=== PATIENT | male | born 1940 | race Caucasian/White ===

== ENCOUNTER → 2017-01-03 | Outpatient (CLI) | payer MEDICARE, BC ==
[~2017-01-03] MED LIST: ASPI-799 PO; CLOP75TA27 PO; ESCI10TA PO; FINA5TAB PO; PIRO20CA2 PO; PYRI60TA PO; SIMV5TAB31 PO
--- NOTE | 2017-01-03 14:49 | RADRPT ---
PROCEDURE: XR pelvis/right hip. CLINICAL INDICATION: Hip pain TECHNIQUE: AP pelvis/lateral right hip view performed. COMPARISON: No prior studies are available for comparison. FINDINGS: There is a left total hip replacement. There is no evidence of loosening of the prosthesis. No hardw are failure identified. There is moderate to severe right hip osteoarthrosis. This is associated with joint space narrowing, subchondral sclerosis and osteophytosis. There is normal osseous mineralization. No fractures or osseous lesions are identified. The soft tissues are unremarkable. IMPRESSION: Left total hip replacement. Moderate to severe right hip osteoarthrosis. RPTAT: HGDB .Vincent Christianson MD, MD Date Time Electronically viewed and signed by .Vincent Christianson MD, on 01/03/2017 14:49 .B/
--- NOTE | 2017-01-04 06:19 | HKNOTE ---
DATE OF SERVICE: 01/03/2017 MAIN COMPLAINT: Pain in the right hip. HISTORY OF MAIN COMPLAINT: The patient is a 76-year-old male who has previously undergone a left hi p replacement which was performed by me 15 years ago. He has been totally delighted with the result s of the surgery. He has never had a moment's trouble with the hip. Three years ago he underwent a right knee replacement which was also performed by me. He has been very pleased with the results o f surgery. He now complains of pain in his right groin which has been present for approximately the past year but very much worse in the past 3 weeks. PRESENT COMPLAINTS: The pain in his right groin varies from moderate to severe. Pain is aggravated by walking, weightbearing, and stair climbing. He does not get any rest pain, occasionally gets ni ght pain. He takes Motrin for the pain which "helps a little." His main relief is just by sitting still. He does have a history of problems with the lower back. He has had surgery on the lumbar sp ine. He has no numbness or tingling in his legs. On a level surface, he can walk no more than 50 f eet at a time using a cane. He limps all the time. His leg lengths feel equal. He does not have a shoe lift. He cannot clip his toenails on his right side nor put on his shoes and socks. PAST ORTHOPEDIC HISTORY: Left hip replacement by Dr. Hyde 2000, right knee replacement by Dr. Hyde 2013. PRIOR CORTISONE INTAKE: He has had multiple cortisone injections into his knee. He is currently on prednisone 15 to 20 mg a day for myasthenia gravis. He has been on the prednisone since 2016. ALCOHOL INTAKE: None. OTHER JOINT PROBLEMS: None. BLOOD TESTS FOR ARTHRITIS: Yes (osteoarthritis.) PRIOR INJURIES TO HIPS OR KNEES: None. WORK STATUS: The patient is retired. He enjoys working on his [employer] cars. PAST MEDICAL HISTORY: 1. Heart attack with stent placement in 2008. 2. Myasthenia gravis. 3. The patient has sleep apnea. He uses a CPAP machine every night. The patient is being treated for the myasthenia with IVIG. This occurs approximately every 3 or 4 m ont; he is admitted to the hospital for 4 or 5 days and given the intravenous injections. The las t injection series was on 10/08/2016. PAST SURGICAL HISTORY: 1. Right knee replacement in 2015. 2. Left hip replacement in 2000. 3. Spine surgery with Dr. Abel in 2007. 4. Thymectomy at [facility] in 2010. ALLERGIES: NONE. MEDICATIONS: 1. ____ 50 mg 2 tablets twice a day for myasthenia gravis. 2. Folic acid 1 mg twice a day for myasthenia gravis. 3. Prednisone 50 mg once a day for myasthenia gravis. 4. Mestinon 60 mg 3 times a day for myasthenia gravis. 5. Plavix 75 mg once a day for his heart condition. 6. Proscar 5 mg daily. 7. Simvastatin 80 mg daily. 8. Singulair 10 mg once a day. 9. Lisinopril 20 mg once a day for his heart. 10. Lexapro 20 mg once a day by mouth for depression. 11. Piroxicam 20 mg daily for arthritis. 12. Aspirin 325 mg once a day for his heart. 13. Incruse 62.5 mcg 1 puff in the morning for breathing. 14. Breo 100 mcg 1 puff in the morning for breathing. FAMILY HISTORY: Noncontributory. SYSTEMS REVIEW: Heart attack in 2008, gait disturbance. Otherwise negative. HABITS: The patient does not smoke or drink alcoholic beverages. COOK SAUCE: Dr. Christian Patrick, [place], [place] (phone number [phone].) NEUROLOGIST/MYASTHENIA GRAVIS EXPERT: Dr. Perry (phone number [phone].) PHYSICAL EXAMINATION GENERAL: The patient comes in with his . He is quite severely overweight. VITAL SIGNS: Height 5 feet 7, weight 265 pounds. Blood pressure 135/60, temperature 98.7. The patient is quite deaf, and I had to scream in his ears or his would translate for him. GAIT: The patient has a marked antalgic gait. He has a cane which he uses in his left hand. RIGHT HIP: Flexion 45 degrees, external rotation contracture 20 degrees, internal rotation -20 degr ees, abduction 30, adduction 10 degrees, severe pain in the right groin at all limits of motion. LEFT HIP: A full range of motion without pain. RIGHT KNEE: Scar of previous knee replacement. Full range of motion without pain. IMAGING: Plain x-rays of his pelvis and hips obtained today show exceedingly severe degenerative os teoarthritis of the right hip with [id number] complete loss of joint space. Osteophytes, subchond ral sclerosis, and intraosseous cyst formation. His bone quality seemed to be quite good. Imaging of the left hip seen on today's x-rays show a perfect right hip replacement. Appears to be a gqgus-qt-qkszi Van type of hip implant. All components are well aligned and well attached to the bone. DIAGNOSES: 1. Exceedingly severe degenerative osteoarthritis of the right hip. 2. Status post right total knee replacement. 3. Status post left total hip replacement. 4. Myasthenia gravis. 5. Sleep apnea. 6. History of heart attack. 7. Breathing disorder (? COPD). MANAGEMENT: The patient is advised that he most certainly will need to have a right hip replacement . The procedure and some of the major possible complications were discussed with him in a fair amou nt of detail. Note that the newer technique of anterior hip replacement was discussed with him and his in a fair amount of detail. The patient was given my manual titled "Arthritis of the Hip J oint" which contains information concerning the various alternatives of treatment. It includes vario us forms of conservative treatment, including the use of nonsteroidal anti-inflammatory medications and their dangers. Various surgical alternatives are discussed. The technique of total hip replaceme nt is discussed in detail, including possible complications. Included also is a section on the possi ble complications of blood transfusion, a section on postoperative precautions, and an exercise prog uyen to follow at home after total hip replacement. The long-term care of a total hip replacement [facility] is also covered in detail. The patient was instructed to read this manual in its entirety since it is, in and of itself, a form of informed consent. After reading this manual, the patient will ma ke a list of further questions that may not have been covered adequately. The patient was further ad vised that this manual, although exhaustive in nature, is only intended to supplement and complement a one-on-one discussion with me. FINAL DIAGNOSES: 1. Exceedingly severe degenerative osteoarthritis of the right hip. 2. Status post right total knee replacement. 3. Status post left total hip replacement. 4. Myasthenia gravis. 5. Sleep apnea. 6. History of heart attack. 7. Breathing disorder (? COPD). I will need to contact Dr. Perry ([phone]) concerning the myasthenia gravis and any special c are we will need to take at the time of surgery. In particular, there is a question of whether or n ot he will need IVIG around the time of the surgery. The issue of his prednisone also needs to be d iscussed. The patient has other medications which may have an impact on his surgery including the P lavix and aspirin. FINAL DIAGNOSES: 1. Exceedingly severe degenerative osteoarthritis of the right hip. 2. Status post right total knee replacement. 3. Status post left total hip replacement. 4. Myasthenia gravis. 5. Sleep apnea. 6. History of heart attack. 7. Breathing disorder (? COPD). At the patient's request, he was given injection of 2 mL of Kenalog and 6 mL of 2% lidocaine into th e right hip joint. 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 Under sterile conditions, given injection of 2 mL of Kenalog and 6 mL of 2% lidocaine into the right hip joint. The patient will call when he is ready to proceed with surgery. At his request, he is given a presc ription for [place] [id number], one orally b.i.d. Dictated By: MEERA LARSON/LUISA Conf#: [id number] DID#: [id number]
== END | disposition home or self-care (01) ==
LOC: HKI 13:59
DX: M16.11 Unilateral primary osteoarthritis, right hip (principal); G70.00 Myasthenia gravis without (acute) exacerbation; Z96.651 Presence of right artificial knee joint; Z96.642 Presence of left artificial hip joint
CPT/HCPCS: 20610; 73502; G0463

== ENCOUNTER → 2017-03-26 | Outpatient (CLI) | payer MEDICARE, BC ==
[~2017-03-26] MED LIST changes: +AZAT50TA31 PO; +FLUT1AER INHALATION; +FOLI-49 PO; +LISI20TA11 PO; +MONT10TA21 PO; +UMEC62.5 IH
== END | disposition home or self-care (01) ==
LOC: HKI 13:45
DX: Z01.818 Encounter for other preprocedural examination (principal)
CPT/HCPCS: G0463

== ENCOUNTER 2017-03-27 06:07 | Inpatient (IN) | payer MEDICARE, BC ==
[2017-03-26 10:26] VITALS: BMI 42.3
[2017-03-27] VITALS (38 sets, daily range): BP systolic 83–138; BP diastolic 35–66; PULSE 61–98; RESP 17–26; Ht 170.2 cm; Wt 120.5 kg
[~2017-03-27] VITALS: Ht 170.2 cm; Wt 120.5 kg
[~2017-03-27 06:07] MED LIST changes: -AZAT50TA31 PO; -FLUT1AER INHALATION; -FOLI-49 PO; -LISI20TA11 PO; -MONT10TA21 PO; +TRANEXAMIC ACID 2,000 MG in SOD CHLORIDE 0.9% 100 ML IVPB ONE; -UMEC62.5 IH
[2017-03-27] MEDS ORDERED: LANSOPRAZOLE 30 MG CAP PO ONE (06:15)
[2017-03-27] MEDS ORDERED: oxyCODONE (CR) 10 MG TAB [oxyCONTIN] PO ONE (06:15)
[2017-03-27] MEDS ORDERED: VANCOMYCIN 1 GM (PMX) 250 ML IVPB ONE (06:15)
[2017-03-27] MEDS ORDERED: LACTATED RINGER'S 1,000 ML IV* SCH (06:15)
[2017-03-27] MEDS ORDERED: ACETAMINOPHEN 1000MG/100ML IV 100 ML IVPB ONE (06:15)
[2017-03-27] MEDS ORDERED: DEXAMETHASONE 4 MG/ML 1 ML INJ IV ONE (06:15)
[2017-03-27] MEDS ORDERED: CELECOXIB 200 MG CAP PO ONE (06:15)
[2017-03-27] MEDS ORDERED: ONDANSETRON 4 MG INJ IV ONE (06:15)
[2017-03-27] MEDS ORDERED: POLYMYXIN B 500000 UNIT INJ ONE (06:40)
[2017-03-27] MEDS ORDERED: VANCOMYCIN 1 GM INJ ONE (06:40)
[2017-03-27] MEDS ORDERED: GELATIN SIZE 100 SPONGE ONE (06:40)
[2017-03-27] MEDS ORDERED: HEPARIN 1000 UNITS/ML 10 ML INJ ONE (06:40)
[2017-03-27] MEDS ORDERED: BUPIVACAINE 0.5%/EPI (SDV) 30 ML INJ ONE (06:44)
[2017-03-27] MEDS ORDERED: AZAT50TA31 PO (06:50)
[2017-03-27] MEDS ORDERED: UMEC62.5 IH (06:51)
[2017-03-27] MEDS ORDERED: FLUT1AER INHALATION (06:51)
[2017-03-27] MEDS ORDERED: FOLI-49 PO (06:53)
[2017-03-27] MEDS ORDERED: MIDAZOLAM 1 MG/ML 2 ML INJ ONE (06:59)
[2017-03-27] MEDS ORDERED: LISI20TA11 PO (07:15)
[2017-03-27] MEDS ORDERED: MONT10TA21 PO (07:15)
--- NOTE | 2017-03-27 07:24 | HPN ---
Date/Time of Note Date/Time of Note DATE: 03/27/17 TIME: 07:23 Interval H&P Admission Note Pt. seen H&P reviewed: No system changes Given Gamma globulins IV for Hx of Myasthenia Gravis. Will go to ICU after surgery. ELENA MARIE PA-C Mar 27, 2017 07:23
[2017-03-27] MEDS ORDERED: SOD CHLORIDE 0.9% 50 ML, TRANEXAMIC ACID 2,000 MG IRR SCH ×2 (07:30)
[2017-03-27] MEDS ORDERED: NEOSTIGMINE 3 MG/3 ML SYRINGE ONE ×2 (07:31→09:55)
[2017-03-27] MEDS ORDERED: SUCCINYLCHOLINE CHLORIDE 100 MG/5 ML SYG IV ONE (07:31)
[2017-03-27] MEDS ORDERED: PROPOFOL 20 ML ONE (07:31)
[2017-03-27] MEDS ORDERED: ROCURONIUM 50 MG INJ ONE (07:31)
[2017-03-27] MEDS ORDERED: LIDOCAINE 2% (SDV) 5 ML INJ ONE (07:31)
[2017-03-27] MEDS ORDERED: GLYCOPYRROLATE 0.4 MG INJ ONE ×3 (07:31→09:55)
[2017-03-27] MEDS ORDERED: ROPIVACAINE 0.2% 100 ML ONE (08:09)
[2017-03-27] MEDS ORDERED: hydrALAzine 20 MG INJ ONE (08:25)
[2017-03-27] MEDS: HIP PAIN COCKTAIL VANCO INJ SCH ×7 (08:58)
[2017-03-27] MEDS ORDERED: BACITRACIN 50000 UNITS INJ IRR ONE (09:00)
[2017-03-27] MEDS ORDERED: ROPIVACAINE 0.2% 100ML BAG INJ ONE (09:01)
[2017-03-27] MEDS ORDERED: MIDAZOLAM 1 MG/ML 2 ML INJ IV PRN (10:00)
[2017-03-27] MEDS ORDERED: morphine (1 MG/ML) 10ML SYRINGE IV PRN ×3 (10:00)
[2017-03-27] MEDS ORDERED: LABETALOL HCL 20MG INJ IV PRN (10:00)
[2017-03-27] MEDS ORDERED: METOCLOPRAMIDE 10 MG INJ IV PRN (10:00)
[2017-03-27] MEDS ORDERED: EPHEDrine SULFATE 50 MG/5 ML SYG IV PRN (10:00)
[2017-03-27] MEDS ORDERED: OXYCODONE/ACETAMINOPHEN (5/325) TAB PO PRN ×2 (10:00)
[2017-03-27] MEDS ORDERED: MEPERIDINE 25 MG INJ IV PRN (10:00)
[2017-03-27] MEDS ORDERED: hydrALAzine 20 MG INJ IV PRN (10:00)
[2017-03-27] MEDS ORDERED: HYDROmorphONE (0.2 MG/ML) 10ML SYG IV PRN ×3 (10:00)
[2017-03-27] MEDS ORDERED: ONDANSETRON 4 MG INJ IV PRN (10:00)
[2017-03-27] MEDS ORDERED: DIPHENHYDRAMINE 50 MG INJ IV PRN (10:00)
[2017-03-27] MEDS ORDERED: FENTAnyl 50 MCG/ML VIAL IV PRN ×3 (10:00)
--- NOTE | 2017-03-27 12:26 | PDOCDIS ---
Discharge Instructions DIAGNOSIS Discharge Diagnosis Status post right total hip arthroplasty via anterior route CONDITION Patient Condition: Stable HOME CARE INSTRUCTIONS: Diet Instructions: Regular ACTIVITY: Activity Restrictions: Slowly Increase Activity Rest between Activity Avoid heavy lifting No Sexual Activity Do not Drive Do not operate Machinery Do not operate Power Tool Avoid Heavy Housework Keep Limb Elevated (Using ice modalities while at rest and elevated.) Weight Bearing (As tolerated with front wheeled walker) Bathing Restrictions: Shower (Using Tegaderm with pad. Apply prior to shower. After shower, dab the area dry and remove. May repeat the steps each day until jessica are removed around 10 days postoperatively.) FOLLOW UP/APPOINTMENTS Follow-up Plan Follow-up on 04/17/2017 at 1:[address] Hyde/NURIA Resendiz KERBY PA-C Mar 27, 2017 12:26
[2017-03-27] MEDS ORDERED: DIPHENHYDRAMINE 50 MG INJ IM PRN (12:30)
[2017-03-27] MEDS ORDERED: HYDROmorphONE 0.2 MG/ML PCA IV PRN (12:30)
[2017-03-27] MEDS ORDERED: ASPIRIN (EC) 325 MG TAB PO ONE (12:30)
[2017-03-27] MEDS ORDERED: NA PHOSPHATE/BIPHOS 133 ML ENEMA PR PRN (12:30)
[2017-03-27] MEDS ORDERED: NALOXONE (0.4 MG/ML) INJ IV PRN (12:30)
[2017-03-27] MEDS: ONDANSETRON 4 MG INJ IV SCH ×2 (12:30→18:12)
[2017-03-27] MEDS ORDERED: MAGNESIUM HYDROXIDE 30ML CUP PO PRN (12:30)
[2017-03-27] MEDS ORDERED: SENNA/DOCUSATE NA (8.6MG/50MG) TAB PO PRN (12:30)
[2017-03-27] MEDS ORDERED: BETHANECHOL 25 MG TAB PO PRN (12:30)
[2017-03-27] MEDS ORDERED: DOCUSATE SODIUM 100 MG CAP PO ONE (12:30)
[2017-03-27] MEDS ORDERED: ZOLPIDEM 5 MG TAB PO PRN (12:30)
[2017-03-27] MEDS ORDERED: BISACODYL 10 MG SUPP PR PRN (12:30)
[2017-03-27] MEDS ORDERED: MEPERIDINE 10 MG/ML 30 ML PCA IV PRN (12:30)
[2017-03-27] MEDS ORDERED: oxyCODONE 5 MG TAB PO PRN ×2 (12:30)
[2017-03-27] MEDS ORDERED: NACL 0.9% 3 ML SYG IV SCH (12:30)
[2017-03-27] MEDS: CEFAZOLIN 1 GM/50 ML (PMX) 50 ML IVPB SCH ×2 (12:56→21:17)
[2017-03-27] MEDS: ACETAMINOPHEN 1000MG/100ML IV 100 ML IVPB SCH ×2 (13:01→21:18)
--- NOTE | 2017-03-27 13:03 | OPR ---
Date/Time of Note Date/Time of Note DATE: 03/27/17 TIME: 12:50 MEERA LARSON MD Mar 27, 2017 13:02
--- NOTE | 2017-03-27 13:10 | OPR ---
Date/Time of Note Date/Time of Note DATE: 03/27/17 TIME: 13:08 Operative Report Free Text/Dictation Surgeon Dr. Hyde Polysomnographic Technologist Codey. Joshua Anestheiologist Dr. Ron Preoperative Diagnosis: Severe degenerative osteoarthritis of the right hip. Postoperative Diagnosis: Severe degenerative osteoarthritis of the right hip. Operation performed: Right total hip replacement by the anterior route. Computer-assisted surgery using the [employer] imaging computer. Disclaimer: This is being dictated on [employer] workstation which is notoriously unreliable in terms of putting incorrect terminology and sentence construction. This is the only system being provided by the hospital at the present time and I am not reliable for any typos or misconceptions due to the inadequacies of [employer] Findings at Surgery: The right hip was found to have classic changes of osteonecrosis. An x-ray obtained in my office 2 months ago showed the femoral head to have a normal configuration. The x-rays obtained in the operating room today showed that there is complete collapse of the femoral head. It was therefore difficult to you to use Where[facility] Up x-ray system read [employer], [place] to determine exact lengths of leg length and offset. Using the previous x-rays mentioned above we will redetermined empirically that the leg in his current state needed to be lengthened by about 7 mm. The patient was found to have secondary degenerative osteoarthritis of the right hip hip. The femoral head had no normal-appearing articular cartilage. The patient's bone quality was satisfactory for a male of his age age. 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 In addition there is secondary osteoarthritic changes. There can be no scientific expectation that any further conservative measures would give this patient any relief from his incapacitating pain. Patient is barely able to get in and out of bed and go to the bathroom. Description of Procedure: The patient was given intravenous antibiotics approximately 1 hour prior to surgery. An epidural anesthetic was initiated in the pre-anesthesia area. The patient was then moved to the operating room and transferred to a [place] table. General anesthesia was induced with intubation and full muscle paralysis. Plain and digital x-rays were obtained of the pelvis and the operative hip and stored in the computer. Measurements were made on the operative hip to determine the degree of length and offset. The intent was to use operative hip as a basic template for restoring the geometry of the operative hip (i.e. the opposite hip was not used as a template). On the pelvic x-ray, the correct orientation of the pelvis for surgery was determined. Note that the [employer] computer was used throughout for making all leg length,offst and angular measurements. The operative thigh, leg and lower abdomen were prepared and draped in the usual sterile fashion. An oblique incision was made over the lateral aspect of the right thigh. The incision commenced 3 cm distal and 3 cm posterior to the anterior superior iliac spine. The total length of the incision was approximately 100 mm mm. The incision was deepened through the subcutaneous fat to expose the fascia over the tensor muscle. The fascia was opened to expose the muscle. Bleeding points were cauterized throughout by diathermic coagulation. The fascia over the tensor was incised by blunt digital resection. The interval was found between the tensor muscle and the anterior capsule as well as the rectus muscle. Superior and inferior Cobra retractors were now placed inside the capsule to expose the anterior surface of the capsule. A third Cobra retractor was placed over the brim of the pelvis. The reflected head of the rectus was first elevated with a Thomason elevator. The anterior capsule was incised along the length of the intratrochhanteric line with the hip externally rotated. The incision extended around the proximal femur to the lesser trochanter. The incision was extended vertically to the edge of the acetabulum. The capsular incision was extended along the anteromedial extent of the anterior rim of the acetabulum. A Cobra retractor was placed inside the capsule medially. The lateral aspect of the anterior capsule was incised and a second cobra retractor was placed inside the capsule around the superior femoral neck. Three turns of traction were placed on the operative leg. The femoral head was now freed from the acetabulum using a skid. The remaining superior and anterior capsule was incised and the femoral neck was then incised. A corkscrew was inserted into the femoral head from the anterior aspect of the femoral head. Using a corkscrew as a handle and using a skid, the hip was not completely dislocated. The hip was reduced. An osteotomy of the femoral neck was made at the location determined by the preoperative templating. The femoral head was now removed. By suitable retraction, the acetabulum was exposed. Soft tissues around the folia removed. The acetabulum was enlarged and deepened 51 mm mm. The last acetabular reamings were inserted under fluoroscopic control and the correct orientation of the socket and if the reaming were determined by the [employer] computer and direct x-ray if x-ray visualization. The acetabular component was now installed with an orientation of 32 degrees of abduction and 25 degrees of anteversion. The [employer] computer was used for making these measurements. The proximal femur was now exposed by hyperextending and adducting the hip joint. A retractor was placed posterior to the femoral neck so as to retract proximal femur laterally. A hook was then placed around the proximal femur deep to the tensor muscle and as proximal as possible. The hook was attached to the table heidi and the femur was elevated as high as we can go without force being applied to the femur. The superior and proximal femoral capsules were now incised. The cobra retractor was placed behind the posterior rim of the acetabulum. A Steinmann pin was driven into the pelvis superior to the acetabulum to retract the soft tissues. A third cobra was placed over the rim of the acetabulum and the fourth cobra was placed along the medial aspect of the acetabulum. This allowed further mobilization of the proximal femur. A canal finder was used to find the canal. The proximal femur is now broached starting with the smallest broach and progressively increasing until we felt we could go no further. At this point, the size 12 broach was left in place and the hip was reduced. X-rays were taken and these x-rays showed that we could broach up 1 more size. The hip was reduced with shortest femoral head neck exam The hip was dislocated. The next size broach 13 was now installed. This broach was found to be completely stable. The hip was reduced using the past 5 mm femoral head and neck assembly and the 13 broach. Measurements indicated that the leg lengths had been increased by 7 mm. The offset was 3. This was felt to be an appropriate combination. The trial components were placed and and the hip reduced. The foot was now detached from the [place] DOOLEY and a table and the hip was put through a full functional range of motion and was found to have a completely stable motion to the limits of motion. The tension on the quadriceps muscle was found to be appropriate. As trial components were removed, the permanent plastic acetabular component was installed. This was followed by installing the permanent femoral component. X-rays of the pelvis showed that the sizing was excellent inside and that the orientation was perfect. The wound was frequently irrigated throughout the procedure with normal saline containing antibiotics using pulsatile lavage. The permanent femoral component was installed, it fit perfectly and appeared to be completely stable. The permanent femoral head was installed and the hip was reduced. Superficial and deep Hemovac drains were placed. Soft tissues around the hip were injected with a mixture of Naropin, Toradol, morphine, and elonidine for pain management. The deep tissues were now closed using interrupted Vicryl. The subcutaneous tissues were closed using a Quill type stitch. The skin was closed using jessica. The usual sterile dressings were applied and an abduction pillow was placed between the patients legs before transferring her to a rmadison. The patient returned to the recovery room in stable condition. There were no problems or complications throughout this operation as far as is known. Although multiple x- rays were taken in the operating room and saved, the permanent x-ray record was obtained in the recovery room to be sure that the hip did not dislocate in transfer. Implant Component Information: [] Femoral Component: CORAILHO DOOLEY-coated standard bolus size 13 Acetabular Component: 52 mm Mcgehee with prescription GRII PTI Femoral head size: 36 mm Femoral neck size: +5 mm Implant stone gang sawyer: [employer] [place], [place]. Leg length: Increased 7 mm Offset: Increased 3 mm Reinfusion was used. The total blood loss was approximately 650 mL mL and similarly were recovered and reinfused as packed cells. MEERA HYDE MD Mar 27, 2017 13:10
--- NOTE | 2017-03-27 13:24 | RADRPT ---
PROCEDURE: Intraoperative imaging of the right hip with fluoroscopy. CLINICAL INDICATION: Right hip pain. Intraoperative. TECHNIQUE: 9 images of the right hip were obtained in the operating room with an image intensifier . No radiologist was in attendance. 1.2 minutes of fluoroscopy time was used. COMPARISON: No prior study is available for comparison. FINDINGS: Images demonstrate placement of a total right hip arthroplasty. A left hip arthroplasty is also pres ent. IMPRESSION: 1. Satisfactory intraoperative imaging of the right hip. RPTAT: QQ .Teddy Richardson MD, MD Date Time Electronically viewed and signed by .Teddy Richardson MD, on 03/27/2017 13:24 .R/
[2017-03-27] MEDS: DEXTROSE 5%-LR 1,000 ML IV SCH (13:36)
--- NOTE | 2017-03-27 14:01 | RADRPT ---
PROCEDURE: XR Hip. CLINICAL INDICATION: Postop TECHNIQUE: AP view the right hip was performed. COMPARISON: None. FINDINGS: Non cemented right total hip arthroplasty in near anatomic alignment without acute radiographic abno rmality. Recent surgical changes seen in the soft tissues. IMPRESSION: 1. Non cemented right total hip arthroplasty in near anatomic alignment. RPTAT: PP .Jose Martinez MD, MD Date Time Electronically viewed and signed by .Jose Martinez MD, on 03/27/2017 14:01 .d/
--- NOTE | 2017-03-27 14:02 | CONS ---
Date/Time of Note Date/Time of Note DATE: 03/27/17 TIME: 13:51 Assessment/Plan Assessment/Plan Chief Complaint/Hosp Course Impression: 1. This patient is now postop a right total hip replacement for severe osteoarthritis. The patient is in the recovery room and doing well. 2. The patient has multiple medical problems which I will manage including myasthenia gravis, hypertension, asthma, depression, obstructive sleep apnea. Plan: 1. Resume routine medications 2. Check labs in the morning 3. Postop total hip replacement protocol 4. I will follow the patient along with you. Problems: Consultation Date/Type/Reason Admit Date/Time Mar 27, 2017 at 06:07 Date of Consultation: Mar 27, 2017 Type of Consultation: medicine Reason for Consultation myasthenia gravis, Asthma, Hypertension, Atherosclerotic heart disease Referring Provider: MEERA LARSON MD Hx of Present Illness This 77-year-old man is being seen by me as a medical consultation. The patient is currently in the postanesthesia recovery room after undergoing a right total hip replacement by Dr. Larson. The patient is awake and responsive. The patient's is with him. I did review the patient's past medical history with the patient and his . We reviewed his medications. The patient has the following past medical history: Myasthenia gravis, hypertension, asthma, atherosclerotic heart disease, hyperlipidemia. Constitutional: no complaints Eyes: no complaints ENT: no complaints Respiratory: no complaints Cardiovascular: no complaints Gastrointestinal: no complaints Genitourinary: no complaints Musculoskeletal: no complaints Neurologic: no complaints Past Medical History Past medical history: Myasthenia gravis Hypertension Atherosclerotic heart disease status post acute myocardial infarction Depression Osteoarthritis Asthma. Hyperlipidemia Sleep apnea for which he uses a CPAP machine. Past Surgical History Past surgical history: Right total knee replacement Left total hip replacement Family History Significant Family History: no pertinent family hx Social History Alcohol Use: none Smoking Status: Never smoker Drug Use: none Exam/Review of Systems Vital Signs Vitals Vital Signs Date Time Temp Pulse Resp B/P Pulse Ox O2 Delivery O2 Flow Rate FiO2 03/27/17 13:04 68 21 138/61 94 Nasal Cannula 4.0 03/27/17 12:23 99.2 Exam Constitutional: alert, oriented, well developed Neck: non-tender, supple Respiratory: clear to auscultation, normal air movement Cardiovascular: nl pulses, regular rate and rhythm Gastrointestinal: non-tender, soft Musculoskeletal: nl extremities to inspection Neurological: SECURITY OFFICER II-XII intact, nl mental status, nl speech, nl strength Medications Medications Current Medications Lactated Ringer's 1,000 ml @ 125 mls/hr Q8H IV* Last administered on 06:37; Admin Dose 125 MLS/HR; Start 03/27/17 at 06:15; Stop 03/27/17 at 14: 14 Dextrose/Lactated Ringer's (D5-Lr) 1,000 ml @ 80 mls/hr [id number] IV Last administered on 03/27/17 13:36; Admin Dose 80 MLS/HR; Start 03/27/17 at 12:07 Hydromorphone HCl (Dilaudid ANALYST) Q4PCA PRN IV SEVERE PAIN 8-10; Start at 12:30; Stop 03/28/17 at 09:00 Meperidine HCl (Demerol ANALYST) Q4PCA PRN IV SEVERE PAIN 8-10; Start 03/27/17 at 12:30; Stop 03/28/17 at 09:00 Oxycodone HCl (Roxicodone) 20 mg Q3H PRN PO PAIN LEVEL 8-10; Start 03/27/17 at 12:30 Oxycodone HCl (Roxicodone) 10 mg Q3H PRN PO PAIN LEVEL 4-7; Start 03/27/17 at 12:30 Oxycodone HCl 5 mg 5 mg Q3H PRN PO PAIN LEVEL 1-3; Start 03/27/17 at 12:30 Acetaminophen (Ofirmev 1000mg/ 100ml Iv) 100 ml @ 400 mls/hr Q8H IVPB Last administered on 03/27/17 13:01; Admin Dose 400 MLS/HR; Start 03/27/17 at 12:30 ; Stop 03/29/17 at 04:44 Zolpidem Tartrate (Ambien) 5 mg HS PRN PO INSOMNIA; Start 03/27/17 at 12:30 Ondansetron HCl 4 mg 4 mg Q6H IV ; Start 03/27/17 at 12:30; Stop 03/28/17 at 06: 31 Cefazolin Sodium (Ancef 1 Gm/50 ml (Pmx)) 50 ml @ 100 mls/hr Q8H IVPB Last administered on 03/27/17t 12:56; Admin Dose 100 MLS/HR; Start 03/27/17 at 12:30 ; Stop 03/28/17 at 04:59 Aspirin (Ecotrin) 325 mg BID PO ; Start 03/28/17 at 09:00 Celecoxib (Celebrex) 200 mg BID PO ; Start 03/28/17 at 09:00 Dexamethasone (Decadron) 4 mg DAILY@07 IV ; Start 03/28/17 at 07:00; Stop at 06:59 Pantoprazole (Protonix Tab) 40 mg DAILY@06 PO ; Start 03/28/17 at 06:00 Docusate Sodium/ Ferrous Fumarate (Arsalan-Sequels) 1 tab BID PO ; Start 03/28/17 at 09:00 Docusate Sodium (Colace) 200 mg BID PO ; Start 03/28/17 at 09:00; Stop 03/30/17 at 21:01 Simethicone (Mylicon) 80 mg TID PRN PO DISTENSION/GAS/BLOATING; Start 03/27/17 at 12:30 Senna/Docusate Sodium (Senokot-S) 2 tab BID PRN PO CONSTIPATION; Start at 12:30 Magnesium Hydroxide (Milk Of Mag) 30 ml HS PRN PO CONSTIPATION; Start 03/27/17 at 12:30 Bisacodyl (Dulcolax Supp) 10 mg DAILY PRN [place] CONSTIPATION; Start 03/27/17 at 12 :30 Sodium Biphosphate/ Sodium Phosphate (Fleet Enema) 133 ml DAILY PRN [place] CONSTIPATION; Start 03/27/17 at 12:30 Diphenhydramine HCl (Benadryl) 25 mg Q4H PRN IM ITCHING OR RASH; Start at 12:30 Ketorolac Tromethamine (Toradol) 15 mg DAILY@06 PRN INJ ADMINSTER BY SURGEON ONLY; Start 03/28/17 at 06:00; Stop 04/01/17 at 05:59 Bupivacaine HCl/ Epinephrine Bitart (Marcaine 0.25%/ Epi (Sdv) 30 ml) 20 ml DAILY@06 PRN INJ ADMINSTER BY SURGEON ONLY; Start 03/28/17 at 06:00; Stop 04/01 at 05:59 Naloxone HCl (Narcan) 0.2 mg Q2M PRN IV DECREASED REPIRATORY RATE; Start at 12:30 Pyridostigmine [place] (Mestinon) 120 mg Q8 PO ; Start 03/27/17 at 14:00 Azathioprine (Imuran) 75 mg BID PO ; Start 03/27/17 at 21:00 AMARA ROACH MD Mar 27, 2017 14:01
[2017-03-27] MEDS: PYRIDOSTIGMINE 60 MG TAB PO SCH ×2 (15:03→21:17)
[2017-03-27] MEDS ORDERED: SOD CHLORIDE 0.9% IVPB ONE ×2 (15:30→18:30)
[2017-03-27] MEDS ORDERED: TRANEXAMIC ACID IVPB ONE ×2 (15:30→18:30)
[2017-03-27] MEDS ORDERED: PYRIDOSTIGMINE 60 MG TAB PO SCH (21:00)
[2017-03-27] MEDS ORDERED: AZATHIOPRINE 50 MG TAB PO SCH ×2 (21:00)
[2017-03-27] MEDS: MONTELUKAST 10 MG TAB PO SCH (21:17)
[2017-03-27] MEDS: ATORVASTATIN 40 MG TAB PO SCH (21:17)
[2017-03-27] MEDS: FOLIC ACID 1 MG TAB PO SCH (21:17)
[2017-03-28] VITALS (22 sets, daily range): BP systolic 116–202; BP diastolic 52–94; PULSE 60–85; RESP 11–23
[2017-03-28] MEDS: ONDANSETRON 4 MG INJ IV SCH ×2 (00:30→06:03)
[2017-03-28] MEDS: DEXTROSE 5%-LR 1,000 ML IV SCH (01:34)
[2017-03-28] MEDS: oxyCODONE 5 MG TAB PO PRN (03:20)
[2017-03-28] MEDS: CEFAZOLIN 1 GM/50 ML (PMX) 50 ML IVPB SCH (04:44)
[2017-03-28] MEDS: ACETAMINOPHEN 1000MG/100ML IV 100 ML IVPB SCH ×3 (04:45→20:57)
[2017-03-28] MEDS ORDERED: BUPIVACAINE 0.25%/EPI (SDV) 30 ML INJ INJ PRN (06:00)
[2017-03-28] MEDS ORDERED: KETOROLAC 15 MG INJ INJ PRN (06:00)
[2017-03-28] MEDS: PANTOPRAZOLE (EC) 40 MG TAB PO SCH (06:02)
[2017-03-28] MEDS: PYRIDOSTIGMINE 60 MG TAB PO SCH ×3 (06:04→22:17)
[2017-03-28 06:27] LABS: ADD SCAN DIFF NO
[2017-03-28 06:37] LABS: BASOPHILS % 0.1 % (0.0-2.0); EOSINOPHILS % 0.5 % (0.0-7.0); HEMATOCRIT 29.6 % (42.0-52.0); HEMOGLOBIN 9.3 g/dl (14.0-18.0); LYMPHOCYTES % 24.1 % (15.0-51.0); MEAN CORPUSCULAR HEMOGLOBIN 32.6 pg (29.0-33.0); MEAN CORPUSCULAR HGB CONC 31.4 g/dl (32.0-37.0); MEAN CORPUSCULAR VOLUME 103.9 fl (82.0-101.0); MEAN PLATELET VOLUME 10.2 fl (7.4-10.4); MONOCYTE # 1.1 10^3/ul (0.3-0.9); MONOCYTES % 13.3 % (0.0-11.0); NEUTROPHIL # 5.2 10^3/ul (1.6-7.5); NEUTROPHILS % 61.6 % (39.0-77.0); PLATELET COUNT 167 10^3/UL (140-415); RED BLOOD COUNT 2.85 10^6/ul (4.70-6.10); RED CELL DISTRIBUTION WIDTH 13.7 % (11.5-14.5); WHITE BLOOD COUNT 8.4 10^3/ul (4.8-10.8)
[2017-03-28 06:57] LABS: ALBUMIN 3.3 g/dl (3.3-4.9); ALBUMIN/GLOBULIN RATIO 1.13; BILIRUBIN,INDIRECT 0.2 mg/dl (0-1.1); BILIRUBIN,TOTAL 0.2 mg/dl (0.2-1.3); CALCIUM 8.7 mg/dl (8.4-10.2); CREATININE 0.95 mg/dl (0.61-1.24); POTASSIUM 4.4 mmol/L (3.5-5.1); TOTAL PROTEIN 6.2 g/dl (6.1-8.1)
--- NOTE | 2017-03-28 07:43 | PN ---
Date/Time of Note Date/Time of Note DATE: 03/28/17 TIME: 07:39 Assessment/Plan VTE Prophylaxis VTE Prophylaxis Intervention: SCD's, other (ASA 325mg and Clopidegrel 75mg) Lines/Catheters IV Catheter Type (from Nrsg): Peripheral IV Carter in Place (from Nrsg): No Assessment/Plan Assessment/Plan -Hemovac Removed Today. 340 output -Pain Cocktail Given -Pain Meds as needed -Dress change performed today -OOB with PT -ASA/SCDs for DVT Prophylaxis -Continue monitoring with Internal Medicine. OK to transfer to Med/surg ([facility]) today from orthopedic standpoint but would also need clearance from internal medicine. This was also communicated to ADVANCED MANUFACTURING ENGINEER Sana -Patient Stable Subjective 24 Hr Interval Summary POD#1 R OLI. No complaints overnight while in the ICU. No pain. No PT yet but plans to initiate today. Doing well and comfortable. Constitutional: no complaints Pain Control: well controlled Exam/Review of Systems Vital Signs Vitals Vital Signs Date Time Temp Pulse Resp B/P Pulse Ox O2 Delivery O2 Flow Rate FiO2 03/28/17 06:00 68 19 119/56 97 03/28/17 05:59 3.0 03/28/17 05:00 98.2 03/27/17 19:32 Nasal Cannula Intake and Output 03/27/17 03/27/17 03/28/17 15:00 23:00 07:00 Intake Total 1300 ml 1090 ml 980 ml Output Total 770 ml 300 ml 1500 ml Balance 530 ml 790 ml -520 ml Exam Free Text/Dictation -Hemovac: Intact. 340cc overnight -Pain Cocktail Drains: Intact -Incision: Clean, Dry and Intact without any redness or drainage -Thigh soft -5/5 Quadriceps, Tibialis Anterior, EHL Gastrocnemius/Soleus and Peroneals -Normal Sensation -Palpable DP/PT, Capillary Refill <2 secs -No Distal Edema -Negative Judy Sign/No calf pain -Toes Freely Movable Constitutional: alert, oriented, well developed Results Result Diagram: 03/28/17 0528 03/28/17 0528 ELENA MARIE PA-C Mar 28, 2017 07:43
[2017-03-28] MEDS: HIP PAIN COCKTAIL VANCO INJ SCH ×7 (08:00)
[2017-03-28] MEDS: CELECOXIB 200 MG CAP PO SCH ×2 (08:30→20:56)
[2017-03-28] MEDS: FINASTERIDE 5 MG TAB PO SCH (08:30)
[2017-03-28] MEDS: FOLIC ACID 1 MG TAB PO SCH ×2 (08:30→20:56)
[2017-03-28] MEDS: ASPIRIN (EC) 325 MG TAB PO SCH ×2 (08:30→20:56)
[2017-03-28] MEDS: DOCUSATE SODIUM 100 MG CAP PO SCH ×2 (08:30→20:57)
[2017-03-28] MEDS: FERROUS FUMARATE (SR) TAB PO SCH ×2 (08:30→20:56)
[2017-03-28] MEDS: DEXAMETHASONE 4 MG/ML 1 ML INJ IV SCH (08:31)
--- NOTE | 2017-03-28 10:19 | CONS ---
Date/Time of Note Date/Time of Note DATE: 03/28/17 TIME: 10:14 Assessment/Plan Assessment/Plan Chief Complaint/Hosp Course Impression: 1. This patient is now 1 day postop a right total hip replacement for severe osteoarthritis. The patient is in the ICU and doing well. 2. The patient has multiple medical problems which I will manage including myasthenia gravis, hypertension, asthma, depression, obstructive sleep apnea. Plan: 1. Resume routine medications 2. Check labs in the morning 3. Postop total hip replacement protocol 4. He can be transferred to [facility] rehab floor . Problems: Consultation Date/Type/Reason Admit Date/Time Mar 27, 2017 at 06:07 Initial Consult Date 03/27/17 Type of Consultation: medicine Referring Provider: MEERA LARSON MD 24 HR Interval Summary Free Text/Dictation He is now in the ICU one day post op a R THR . He feels well today . Constitutional: improved, no complaints Exam/Review of Systems Vital Signs Vitals Vital Signs Date Time Temp Pulse Resp B/P Pulse Ox O2 Delivery O2 Flow Rate FiO2 03/28/17 09:00 71 17 116/53 98 Nasal Cannula 2.0 03/28/17 08:00 98.1 Intake and Output 03/27/17 03/27/17 03/28/17 15:00 23:00 07:00 Intake Total 1300 ml 1090 ml 980 ml Output Total 770 ml 300 ml 1500 ml Balance 530 ml 790 ml -520 ml Exam Constitutional: alert, obese, oriented Respiratory: clear to auscultation, normal air movement Cardiovascular: regular rate and rhythm Gastrointestinal: non-tender, soft Musculoskeletal: nl extremities to inspection Results Result Diagram: 03/28/17 0528 03/28/17 0528 Results 24 hrs Laboratory Tests Test 03/28/17 05:28 White Blood Count 8.4 Red Blood Count 2.85 L Hemoglobin 9.3 L Hematocrit 29.6 L Mean Corpuscular Volume 103.9 H Mean Corpuscular Hemoglobin 32.6 Mean Corpuscular Hemoglobin Concent 31.4 L Red Cell Distribution Width 13.7 Platelet Count 167 Mean Platelet Volume 10.2 Neutrophils % 61.6 Lymphocytes % 24.1 Monocytes % 13.3 H Eosinophils % 0.5 Basophils % 0.1 Nucleated Red Blood Cells % 0.0 Neutrophils # 5.2 Lymphocytes # 2.0 Monocytes # 1.1 H Eosinophils # 0.0 Basophils # 0.0 Nucleated Red Blood Cells # 0.0 Sodium Level 131 L Potassium Level 4.4 Chloride Level 106 Carbon Dioxide Level 28 Anion Gap 1 L Blood Urea Nitrogen 16 Creatinine 0.95 Glucose Level 99 Calcium Level 8.7 Total Bilirubin 0.2 Direct Bilirubin 0.00 Indirect Bilirubin 0.2 Aspartate Amino Transf (AST/SGOT) 48 H Alanine Aminotransferase (ALT/SGPT) 24 Alkaline Phosphatase 37 L Total Protein 6.2 Albumin 3.3 Globulin 2.90 Albumin/Globulin Ratio 1.13 Medications Medications Current Medications Oxycodone HCl (Roxicodone) 20 mg Q3H PRN PO PAIN LEVEL 8-10; Start 03/27/17 at 12:30 Oxycodone HCl (Roxicodone) 10 mg Q3H PRN PO PAIN LEVEL 4-7 Last administered on 03/28/17 03:20; Admin Dose 10 MG; Start 03/27/17 at 12:30 Oxycodone HCl 5 mg 5 mg Q3H PRN PO PAIN LEVEL 1-3; Start 03/27/17 at 12:30 Acetaminophen (Ofirmev 1000mg/ 100ml Iv) 100 ml @ 400 mls/hr Q8H IVPB Last administered on 03/28/17 04:45; Admin Dose 400 MLS/HR; Start 03/27/17 at 12:30 ; Stop 03/29/17 at 04:44 Zolpidem Tartrate (Ambien) 5 mg HS PRN PO INSOMNIA; Start 03/27/17 at 12:30 Aspirin (Ecotrin) 325 mg BID PO Last administered on 03/28/17 08:30; Admin Dose 325 MG; Start 03/28/17 at 09:00 Celecoxib (Celebrex) 200 mg BID PO Last administered on 03/28/17 08:30; Admin Dose 200 MG; Start 03/28/17 at 09:00 Dexamethasone (Decadron) 4 mg DAILY@07 IV Last administered on 03/28/17 08:31 ; Admin Dose 4 MG; Start 03/28/17 at 07:00; Stop 03/31/17 at 06:59 Pantoprazole (Protonix Tab) 40 mg DAILY@06 PO Last administered on 03/28/17 06 :02; Admin Dose 40 MG; Start 03/28/17 at 06:00 Docusate Sodium/ Ferrous Fumarate (Arsalan-Sequels) 1 tab BID PO Last administered on 03/28/17 08:30; Admin Dose 1 TAB; Start 03/28/17 at 09:00 Docusate Sodium (Colace) 200 mg BID PO Last administered on 03/28/17 08:30; Admin Dose 200 MG; Start 03/28/17 at 09:00; Stop 03/30/17 at 21:01 Simethicone (Mylicon) 80 mg TID PRN PO DISTENSION/GAS/BLOATING; Start 03/27/17 at 12:30 Senna/Docusate Sodium (Senokot-S) 2 tab BID PRN PO CONSTIPATION; Start at 12:30 Magnesium Hydroxide (Milk Of Mag) 30 ml HS PRN PO CONSTIPATION; Start 03/27/17 at 12:30 Bisacodyl (Dulcolax Supp) 10 mg DAILY PRN [place] CONSTIPATION; Start 03/27/17 at 12 :30 Sodium Biphosphate/ Sodium Phosphate (Fleet Enema) 133 ml DAILY PRN [place] CONSTIPATION; Start 03/27/17 at 12:30 Diphenhydramine HCl (Benadryl) 25 mg Q4H PRN IM ITCHING OR RASH; Start at 12:30 Ketorolac Tromethamine (Toradol) 15 mg DAILY@06 PRN INJ ADMINSTER BY SURGEON ONLY; Start 03/28/17 at 06:00; Stop 04/01/17 at 05:59 Bupivacaine HCl/ Epinephrine Bitart (Marcaine 0.25%/ Epi (Sdv) 30 ml) 20 ml DAILY@06 PRN INJ ADMINSTER BY SURGEON ONLY; Start 03/28/17 at 06:00; Stop 04/01 at 05:59 Naloxone HCl (Narcan) 0.2 mg Q2M PRN IV DECREASED REPIRATORY RATE; Start at 12:30 Pyridostigmine [place] (Mestinon) 120 mg Q8 PO Last administered on 03/28/17 06:04; Admin Dose 120 MG; Start 03/27/17 at 14:00 Finasteride (Proscar) 5 mg DAILY PO Last administered on 03/28/17 08:30; Admin Dose 5 MG; Start 03/28/17 at 09:00 Folic Acid (Folic Acid) 1 mg BID PO Last administered on 03/28/17 08:30; Admin Dose 1 MG; Start 03/27/17 at 21:00 Montelukast Sodium (Singulair) 10 mg QHS PO Last administered on 03/27/17 21: 17; Admin Dose 10 MG; Start 03/27/17 at 21:00 Atorvastatin Calcium (Lipitor) 40 mg DAILY@21 PO Last administered on 21:17; Admin Dose 40 MG; Start 03/27/17 at 21:00 AMARA ROACH MD Mar 28, 2017 10:18
[2017-03-28] MEDS: ATORVASTATIN 40 MG TAB PO SCH (20:56)
[2017-03-28] MEDS: MONTELUKAST 10 MG TAB PO SCH (20:56)
[2017-03-28] MEDS: AZATHIOPRINE 50 MG TAB PO SCH (22:36)
[2017-03-29 00:19] VITALS: BP 126/58; RESP 20
[2017-03-29] MEDS: ACETAMINOPHEN 1000MG/100ML IV 100 ML IVPB SCH (04:30)
[2017-03-29 05:47] LABS: ADD SCAN DIFF NO
[2017-03-29 05:51] LABS: BASOPHILS % 0.1 % (0.0-2.0); EOSINOPHILS # 0.2 10^3/ul (0.0-0.5); EOSINOPHILS % 2.3 % (0.0-7.0); HEMATOCRIT 28.8 % (42.0-52.0); HEMOGLOBIN 9.3 g/dl (14.0-18.0); LYMPHOCYTES # 1.9 10^3/ul (0.8-2.9); LYMPHOCYTES % 25.6 % (15.0-51.0); MEAN CORPUSCULAR HEMOGLOBIN 33.6 pg (29.0-33.0); MEAN CORPUSCULAR HGB CONC 32.3 g/dl (32.0-37.0); MEAN PLATELET VOLUME 10.4 fl (7.4-10.4); MONOCYTE # 0.8 10^3/ul (0.3-0.9); MONOCYTES % 11.3 % (0.0-11.0); NEUTROPHIL # 4.4 10^3/ul (1.6-7.5); NEUTROPHILS % 60.3 % (39.0-77.0); PLATELET COUNT 162 10^3/UL (140-415); RED BLOOD COUNT 2.77 10^6/ul (4.70-6.10); RED CELL DISTRIBUTION WIDTH 13.4 % (11.5-14.5); WHITE BLOOD COUNT 7.4 10^3/ul (4.8-10.8)
[2017-03-29] MEDS: PYRIDOSTIGMINE 60 MG TAB PO SCH ×3 (06:48→21:15)
[2017-03-29] MEDS: PANTOPRAZOLE (EC) 40 MG TAB PO SCH (06:48)
[2017-03-29] MEDS: DEXAMETHASONE 4 MG/ML 1 ML INJ IV SCH (06:48)
--- NOTE | 2017-03-29 08:32 | PN ---
Date/Time of Note Date/Time of Note DATE: 03/29/17 TIME: 08:28 Assessment/Plan VTE Prophylaxis VTE Prophylaxis Intervention: ambulation, SCD's, other (Aspirin 325 mg and clopidogrel 75 mg) Lines/Catheters IV Catheter Type (from Nrsg): Saline Lock Carter in Place (from Nrsg): No Assessment/Plan Assessment/Plan -Pain Cocktail Given -Pain Meds as needed -Dress change performed today -OOB with PT -ASA/SCDs for DVT Prophylaxis -Continue monitoring with Internal Medicine -Patient Stable -Tegaderm with pad was provided for patient today and instructions on how to use while showering when discharged from the hospital was discussed in detail. -Plan is to discharge to prison facility tomorrow if well. Case management order was edited for planned discharge to prison facility. Patient would like prison facility in the [facility]. Also would need clearance from internal medicine with instruction in regards to anticoagulation as he is currently on aspirin 325 mg twice daily with clopidogrel 75 mg. We will defer to internal medicine for anticoagulation therapy postoperatively for the next 6 weeks. Subjective 24 Hr Interval Summary Postop day 2 status post right total hip arthroplasty via anterior route. Denies any pain complaints. Patient is doing well. Patient was up and out of bed with physical therapy 3 times yesterday and states that he was walking throughout the hallways. Denies any calf pain. Denies any chest pain or tightness. He does state that he has difficulty with flexion of the right hip while lying supine. Constitutional: no complaints Pain Control: well controlled Exam/Review of Systems Vital Signs Vitals Vital Signs Date Time Temp Pulse Resp B/P Pulse Ox O2 Delivery O2 Flow Rate FiO2 03/29/17 00:19 98.1 68 20 126/58 96 03/28/17 22:00 Nasal Cannula 3.0 Intake and Output 03/28/17 03/28/17 03/29/17 15:00 23:00 07:00 Intake Total 880 ml 450 ml 250 ml Output Total 1050 ml 650 ml 800 ml Balance -170 ml -200 ml -550 ml Exam Free Text/Dictation -Hemovac: Removed -Pain Cocktail Drains: Intact -Incision: Clean, Dry and Intact without any redness or drainage -Thigh soft -5/5 Quadriceps, Tibialis Anterior, EHL Gastrocnemius/Soleus and Peroneals -Normal Sensation -Palpable DP/PT, Capillary Refill <2 secs -No Distal Edema -Negative Judy Sign/No calf pain -Toes Freely Movable Constitutional: alert, oriented, well developed Results Result Diagram: 03/29/17 0428 03/28/17 0528 ELENA MARIE PA-C Mar 29, 2017 08:31
[2017-03-29] MEDS: FOLIC ACID 1 MG TAB PO SCH ×2 (08:33→20:50)
[2017-03-29] MEDS: CELECOXIB 200 MG CAP PO SCH ×2 (08:33→20:50)
[2017-03-29] MEDS: DOCUSATE SODIUM 100 MG CAP PO SCH ×2 (08:33→20:50)
[2017-03-29] MEDS: FINASTERIDE 5 MG TAB PO SCH (08:33)
[2017-03-29] MEDS: FERROUS FUMARATE (SR) TAB PO SCH ×2 (08:33→20:50)
[2017-03-29] MEDS: ASPIRIN (EC) 325 MG TAB PO SCH ×2 (08:33→20:49)
[2017-03-29] MEDS: oxyCODONE 5 MG TAB PO PRN ×2 (08:34→17:32)
[2017-03-29] MEDS: AZATHIOPRINE 50 MG TAB PO SCH ×2 (08:34→20:50)
[2017-03-29 08:36] VITALS: BP 112/53; RESP 18
--- NOTE | 2017-03-29 13:46 | CONS ---
Date/Time of Note Date/Time of Note DATE: 03/29/17 TIME: 13:34 Assessment/Plan Assessment/Plan Chief Complaint/Hosp Course Impression: 1. This patient is now 2 days postop a right total hip replacement for severe osteoarthritis. He is now on the ortho floor and doing well . 2. The patient has multiple medical problems which I will manage including myasthenia gravis, hypertension, asthma, depression, obstructive sleep apnea. 3. Hyponatremia , he is asymptomatic Plan: 1. continue current medications 2. I will check a CMP in am Problems: Consultation Date/Type/Reason Admit Date/Time Mar 27, 2017 at 06:07 Initial Consult Date 03/27/17 Type of Consultation: medicine Referring Provider: MEERA LARSON MD 24 HR Interval Summary Free Text/Dictation He is now 2 days post op a R THR . He has no complaints . Constitutional: improved, no complaints Exam/Review of Systems Vital Signs Vitals Vital Signs Date Time Temp Pulse Resp B/P Pulse Ox O2 Delivery O2 Flow Rate FiO2 03/29/17 08:36 98.2 64 18 112/53 96 03/28/17 22:00 Nasal Cannula 3.0 Intake and Output 03/28/17 03/28/17 03/29/17 15:00 23:00 07:00 Intake Total 880 ml 450 ml 250 ml Output Total 1050 ml 650 ml 800 ml Balance -170 ml -200 ml -550 ml Exam Constitutional: alert, oriented Respiratory: clear to auscultation, normal air movement Cardiovascular: regular rate and rhythm Musculoskeletal: nl extremities to inspection Results Result Diagram: 03/29/17 0428 03/28/17 0528 Results 24 hrs Laboratory Tests Test 03/29/17 04:28 White Blood Count 7.4 Red Blood Count 2.77 L Hemoglobin 9.3 L Hematocrit 28.8 L Mean Corpuscular Volume 104.0 H Mean Corpuscular Hemoglobin 33.6 H Mean Corpuscular Hemoglobin Concent 32.3 Red Cell Distribution Width 13.4 Platelet Count 162 Mean Platelet Volume 10.4 Neutrophils % 60.3 Lymphocytes % 25.6 Monocytes % 11.3 H Eosinophils % 2.3 Basophils % 0.1 Nucleated Red Blood Cells % 0.0 Neutrophils # 4.4 Lymphocytes # 1.9 Monocytes # 0.8 Eosinophils # 0.2 Basophils # 0.0 Nucleated Red Blood Cells # 0.0 Medications Medications Current Medications Oxycodone HCl (Roxicodone) 20 mg Q3H PRN PO PAIN LEVEL 8-10; Start 03/27/17 at 12:30 Oxycodone HCl (Roxicodone) 10 mg Q3H PRN PO PAIN LEVEL 4-7 Last administered on 03/29/17 08:34; Admin Dose 10 MG; Start 03/27/17 at 12:30 Oxycodone HCl (Roxicodone) 5 mg Q3H PRN PO PAIN LEVEL 1-3 Last administered on 03/28/17 14:41; Admin Dose 5 MG; Start 03/27/17 at 12:30 Zolpidem Tartrate (Ambien) 5 mg HS PRN PO INSOMNIA; Start 03/27/17 at 12:30 Aspirin (Ecotrin) 325 mg BID PO Last administered on 03/29/17 08:33; Admin Dose 325 MG; Start 03/28/17 at 09:00 Celecoxib (Celebrex) 200 mg BID PO Last administered on 03/29/17 08:33; Admin Dose 200 MG; Start 03/28/17 at 09:00 Dexamethasone (Decadron) 4 mg DAILY@07 IV Last administered on 03/29/17 06:48 ; Admin Dose 4 MG; Start 03/28/17 at 07:00; Stop 03/31/17 at 06:59 Pantoprazole (Protonix Tab) 40 mg DAILY@06 PO Last administered on 03/29/17 06 :48; Admin Dose 40 MG; Start 03/28/17 at 06:00 Docusate Sodium/ Ferrous Fumarate (Arsalan-Sequels) 1 tab BID PO Last administered on 03/29/17 08:33; Admin Dose 1 TAB; Start 03/28/17 at 09:00 Docusate Sodium (Colace) 200 mg BID PO Last administered on 03/29/17 08:33; Admin Dose 200 MG; Start 03/28/17 at 09:00; Stop 03/30/17 at 21:01 Simethicone (Mylicon) 80 mg TID PRN PO DISTENSION/GAS/BLOATING; Start 03/27/17 at 12:30 Senna/Docusate Sodium (Senokot-S) 2 tab BID PRN PO CONSTIPATION; Start at 12:30 Magnesium Hydroxide (Milk Of Mag) 30 ml HS PRN PO CONSTIPATION; Start 03/27/17 at 12:30 Bisacodyl (Dulcolax Supp) 10 mg DAILY PRN [place] CONSTIPATION; Start 03/27/17 at 12 :30 Sodium Biphosphate/ Sodium Phosphate (Fleet Enema) 133 ml DAILY PRN [place] CONSTIPATION; Start 03/27/17 at 12:30 Diphenhydramine HCl (Benadryl) 25 mg Q4H PRN IM ITCHING OR RASH; Start at 12:30 Ketorolac Tromethamine (Toradol) 15 mg DAILY@06 PRN INJ ADMINSTER BY SURGEON ONLY; Start 03/28/17 at 06:00; Stop 04/01/17 at 05:59 Bupivacaine HCl/ Epinephrine Bitart (Marcaine 0.25%/ Epi (Sdv) 30 ml) 20 ml DAILY@06 PRN INJ ADMINSTER BY SURGEON ONLY; Start 03/28/17 at 06:00; Stop 04/01 at 05:59 Naloxone HCl (Narcan) 0.2 mg Q2M PRN IV DECREASED REPIRATORY RATE; Start at 12:30 Pyridostigmine [place] (Mestinon) 120 mg Q8 PO Last administered on 03/29/17 06:48; Admin Dose 120 MG; Start 03/27/17 at 14:00 Finasteride (Proscar) 5 mg DAILY PO Last administered on 03/29/17 08:33; Admin Dose 5 MG; Start 03/28/17 at 09:00 Folic Acid (Folic Acid) 1 mg BID PO Last administered on 03/29/17 08:33; Admin Dose 1 MG; Start 03/27/17 at 21:00 Montelukast Sodium (Singulair) 10 mg QHS PO Last administered on 03/28/17 20: 56; Admin Dose 10 MG; Start 03/27/17 at 21:00 Atorvastatin Calcium (Lipitor) 40 mg DAILY@21 PO Last administered on 20:56; Admin Dose 40 MG; Start 03/27/17 at 21:00 Azathioprine (Imuran) 75 mg BID PO Last administered on 03/29/17 08:34; Admin Dose 75 MG; Start 03/28/17 at 21:30 AMARA ROACH MD Mar 29, 2017 13:45
[2017-03-29 19:37] VITALS: BP 134/63; RESP 18
[2017-03-29] MEDS: MONTELUKAST 10 MG TAB PO SCH (20:49)
[2017-03-29] MEDS: ATORVASTATIN 40 MG TAB PO SCH (20:50)
[2017-03-30] MEDS: PYRIDOSTIGMINE 60 MG TAB PO SCH ×3 (06:49→21:59)
[2017-03-30] MEDS: DEXAMETHASONE 4 MG/ML 1 ML INJ IV SCH (06:49)
[2017-03-30] MEDS: PANTOPRAZOLE (EC) 40 MG TAB PO SCH (06:49)
[2017-03-30 07:00] VITALS: BP 141/63; RESP 18
[2017-03-30] MEDS: FERROUS FUMARATE (SR) TAB PO SCH ×2 (08:30→20:43)
[2017-03-30] MEDS: ASPIRIN (EC) 325 MG TAB PO SCH ×2 (08:30→20:44)
[2017-03-30] MEDS: FINASTERIDE 5 MG TAB PO SCH (08:30)
[2017-03-30] MEDS: DOCUSATE SODIUM 100 MG CAP PO SCH ×2 (08:30→20:43)
[2017-03-30] MEDS: oxyCODONE 5 MG TAB PO PRN (08:31)
[2017-03-30] MEDS: FOLIC ACID 1 MG TAB PO SCH ×2 (08:31→20:44)
[2017-03-30] MEDS: CELECOXIB 200 MG CAP PO SCH ×2 (08:31→20:43)
[2017-03-30] MEDS: AZATHIOPRINE 50 MG TAB PO SCH ×2 (08:32→21:59)
--- NOTE | 2017-03-30 11:18 | CONS ---
Date/Time of Note Date/Time of Note DATE: 03/30/17 TIME: :17 Assessment/Plan Assessment/Plan Additional Assessment/Plan 1. stable post op course 2. ok to discharge with ASA BID in addition to plavix for dvt ppx 3. Hyponatremia --> f/u BMP today. asymptomatic 4. MS - cont home meds 5. HTN - cont home meds Consultation Date/Type/Reason Admit Date/Time Mar 27, 2017 at 06:07 Initial Consult Date 03/27/17 Type of Consultation: medicine Referring Provider: MEERA LARSON MD 24 HR Interval Summary Free Text/Dictation Stable, no acute complaints. Exam/Review of Systems Vital Signs Vitals Vital Signs Date Time Temp Pulse Resp B/P Pulse Ox O2 Delivery O2 Flow Rate FiO2 03/30/17 07:00 98.0 72 18 141/63 96 03/30/17 05:55 3.0 03/29/17 19:30 Nasal Cannula Intake and Output 03/29/17 03/29/17 03/30/17 15:00 23:00 07:00 Intake Total 1200 ml 480 ml Output Total 1000 ml 1200 ml Balance 200 ml -720 ml Exam Constitutional: alert, oriented, well developed Respiratory: clear to auscultation, normal air movement Cardiovascular: nl pulses, regular rate and rhythm Results Result Diagram: 03/29/17 0428 03/28/17 0528 Medications Medications Current Medications Oxycodone HCl (Roxicodone) 20 mg Q3H PRN PO PAIN LEVEL 8-10; Start 03/27/17 at 12:30 Oxycodone HCl (Roxicodone) 10 mg Q3H PRN PO PAIN LEVEL 4-7 Last administered on 03/30/17 08:31; Admin Dose 10 MG; Start 03/27/17 at 12:30 Oxycodone HCl (Roxicodone) 5 mg Q3H PRN PO PAIN LEVEL 1-3 Last administered on 03/28/17 14:41; Admin Dose 5 MG; Start 03/27/17 at 12:30 Zolpidem Tartrate (Ambien) 5 mg HS PRN PO INSOMNIA; Start 03/27/17 at 12:30 Aspirin (Ecotrin) 325 mg BID PO Last administered on 03/30/17 08:30; Admin Dose 325 MG; Start 03/28/17 at 09:00 Celecoxib (Celebrex) 200 mg BID PO Last administered on 03/30/17 08:31; Admin Dose 200 MG; Start 03/28/17 at 09:00 Dexamethasone (Decadron) 4 mg DAILY@07 IV Last administered on 03/30/17 06:49 ; Admin Dose 4 MG; Start 03/28/17 at 07:00; Stop 03/31/17 at 06:59 Pantoprazole (Protonix Tab) 40 mg DAILY@06 PO Last administered on 03/30/17 06 :49; Admin Dose 40 MG; Start 03/28/17 at 06:00 Docusate Sodium/ Ferrous Fumarate ([place]salan-Sequels) 1 tab BID PO Last administered on 03/30/17 08:30; Admin Dose 1 TAB; Start 03/28/17 at 09:00 Docusate Sodium (Colace) 200 mg BID PO Last administered on 03/30/17 08:30; Admin Dose 200 MG; Start 03/28/17 at 09:00; Stop 03/30/17 at 21:01 Simethicone (Mylicon) 80 mg TID PRN PO DISTENSION/GAS/BLOATING; Start 03/27/17 at 12:30 Senna/Docusate Sodium (Senokot-S) 2 tab BID PRN PO CONSTIPATION; Start at 12:30 Magnesium Hydroxide (Milk Of Mag) 30 ml HS PRN PO CONSTIPATION Last administered on 03/30/17 06:49; Admin Dose 30 ML; Start 03/27/17 at 12:30 Bisacodyl (Dulcolax Supp) 10 mg DAILY PRN [place] CONSTIPATION; Start 03/27/17 at 12 :30 Sodium Biphosphate/ Sodium Phosphate (Fleet Enema) 133 ml DAILY PRN [place] CONSTIPATION; Start 03/27/17 at 12:30 Diphenhydramine HCl (Benadryl) 25 mg Q4H PRN IM ITCHING OR RASH; Start at 12:30 Ketorolac Tromethamine (Toradol) 15 mg DAILY@06 PRN INJ ADMINSTER BY SURGEON ONLY; Start 03/28/17 at 06:00; Stop 04/01/17 at 05:59 Bupivacaine HCl/ Epinephrine Bitart (Marcaine 0.25%/ Epi (Sdv) 30 ml) 20 ml DAILY@06 PRN INJ ADMINSTER BY SURGEON ONLY; Start 03/28/17 at 06:00; Stop 04/01 at 05:59 Naloxone HCl (Narcan) 0.2 mg Q2M PRN IV DECREASED REPIRATORY RATE; Start at 12:30 Pyridostigmine [place] (Mestinon) 120 mg Q8 PO Last administered on 03/30/17 06:49; Admin Dose 120 MG; Start 03/27/17 at 14:00 Finasteride (Proscar) 5 mg DAILY PO Last administered on 03/30/17 08:30; Admin Dose 5 MG; Start 03/28/17 at 09:00 Folic Acid (Folic Acid) 1 mg BID PO Last administered on 03/30/17 08:31; Admin Dose 1 MG; Start 03/27/17 at 21:00 Montelukast Sodium (Singulair) 10 mg QHS PO Last administered on 03/29/17 20: 49; Admin Dose 10 MG; Start 03/27/17 at 21:00 Atorvastatin Calcium (Lipitor) 40 mg DAILY@21 PO Last administered on 20:50; Admin Dose 40 MG; Start 03/27/17 at 21:00 Azathioprine (Imuran) 75 mg BID PO Last administered on 03/30/17 08:32; Admin Dose 75 MG; Start 03/28/17 at 21:30 JUAN CARLOS AMAYA MD Mar 30, 2017 11:18
[2017-03-30 12:00] VITALS: BP 132/74; PULSE 76; RESP 18
[2017-03-30 12:54] LABS: ADD SCAN DIFF NO
[2017-03-30 12:57] LABS: BASOPHILS % 0.1 % (0.0-2.0); EOSINOPHILS % 0.3 % (0.0-7.0); HEMATOCRIT 31.9 % (42.0-52.0); HEMOGLOBIN 10.2 g/dl (14.0-18.0); LYMPHOCYTES # 1.1 10^3/ul (0.8-2.9); LYMPHOCYTES % 13.6 % (15.0-51.0); MEAN CORPUSCULAR VOLUME 103.2 fl (82.0-101.0); MEAN PLATELET VOLUME 10.2 fl (7.4-10.4); MONOCYTE # 0.4 10^3/ul (0.3-0.9); MONOCYTES % 4.8 % (0.0-11.0); NEUTROPHIL # 6.2 10^3/ul (1.6-7.5); NEUTROPHILS % 80.6 % (39.0-77.0); PLATELET COUNT 187 10^3/UL (140-415); RED BLOOD COUNT 3.09 10^6/ul (4.70-6.10); RED CELL DISTRIBUTION WIDTH 13.5 % (11.5-14.5); WHITE BLOOD COUNT 7.7 10^3/ul (4.8-10.8)
[2017-03-30 13:18] LABS: ALBUMIN 3.8 g/dl (3.3-4.9); ALBUMIN/GLOBULIN RATIO 1.22; BILIRUBIN,INDIRECT 0.1 mg/dl (0-1.1); BILIRUBIN,TOTAL 0.1 mg/dl (0.2-1.3); CALCIUM 9.1 mg/dl (8.4-10.2); CREATININE 0.9 mg/dl (0.61-1.24); TOTAL PROTEIN 6.9 g/dl (6.1-8.1)
[2017-03-30 13:30] LABS: POTASSIUM 5.7 mmol/L (3.5-5.1)
[2017-03-30 20:39] VITALS: BP 125/58; RESP 20
[2017-03-30] MEDS: ATORVASTATIN 40 MG TAB PO SCH (20:43)
[2017-03-30] MEDS: MONTELUKAST 10 MG TAB PO SCH (20:43)
[2017-03-31 05:39] LABS: ADD SCAN DIFF NO
[2017-03-31 05:50] LABS: BASOPHILS % 0.3 % (0.0-2.0); EOSINOPHILS # 0.3 10^3/ul (0.0-0.5); EOSINOPHILS % 3.6 % (0.0-7.0); HEMATOCRIT 30.3 % (42.0-52.0); HEMOGLOBIN 9.8 g/dl (14.0-18.0); LYMPHOCYTES # 2.2 10^3/ul (0.8-2.9); MEAN CORPUSCULAR HEMOGLOBIN 33.7 pg (29.0-33.0); MEAN CORPUSCULAR HGB CONC 32.3 g/dl (32.0-37.0); MEAN CORPUSCULAR VOLUME 104.1 fl (82.0-101.0); MEAN PLATELET VOLUME 10.2 fl (7.4-10.4); MONOCYTE # 0.6 10^3/ul (0.3-0.9); MONOCYTES % 8.1 % (0.0-11.0); NEUTROPHIL # 4.5 10^3/ul (1.6-7.5); NEUTROPHILS % 58.5 % (39.0-77.0); PLATELET COUNT 200 10^3/UL (140-415); RED BLOOD COUNT 2.91 10^6/ul (4.70-6.10); RED CELL DISTRIBUTION WIDTH 13.5 % (11.5-14.5); WHITE BLOOD COUNT 7.7 10^3/ul (4.8-10.8)
[2017-03-31] MEDS ORDERED: AZATHIOPRINE 50 MG TAB PO SCH (06:00)
[2017-03-31] MEDS: PANTOPRAZOLE (EC) 40 MG TAB PO SCH (06:32)
[2017-03-31] MEDS: AZATHIOPRINE 50 MG TAB PO SCH (06:32)
[2017-03-31] MEDS: PYRIDOSTIGMINE 60 MG TAB PO SCH ×2 (06:32→14:04)
[2017-03-31 08:47] VITALS: BP 123/57; RESP 19
[2017-03-31] MEDS: ASPIRIN (EC) 325 MG TAB PO SCH (09:03)
[2017-03-31] MEDS: FERROUS FUMARATE (SR) TAB PO SCH (09:03)
[2017-03-31] MEDS: FOLIC ACID 1 MG TAB PO SCH (09:03)
[2017-03-31] MEDS: CELECOXIB 200 MG CAP PO SCH (09:03)
[2017-03-31] MEDS: FINASTERIDE 5 MG TAB PO SCH (09:03)
[2017-03-31 09:20] LABS: CALCIUM 8.7 mg/dl (8.4-10.2); CREATININE 0.8 mg/dl (0.61-1.24); POTASSIUM 4.3 mmol/L (3.5-5.1)
--- NOTE | 2017-03-31 09:58 | CONS ---
Date/Time of Note Date/Time of Note DATE: 03/31/17 TIME: 09:57 Assessment/Plan Assessment/Plan Additional Assessment/Plan 1. stable post op course 2. ok to discharge with ASA BID in addition to plavix for dvt ppx 3. Hyponatremia --> resolved. 4. MS - cont home meds 5. HTN - cont home meds 6. Stable for discharge from medical standpoint Consultation Date/Type/Reason Admit Date/Time Mar 27, 2017 at 06:07 Initial Consult Date 03/27/17 Type of Consultation: medicine Referring Provider: MEERA LARSON MD 24 HR Interval Summary Free Text/Dictation Doing well, less pain Exam/Review of Systems Vital Signs Vitals Vital Signs Date Time Temp Pulse Resp B/P Pulse Ox O2 Delivery O2 Flow Rate FiO2 03/31/17 08:47 97.4 81 19 123/57 96 03/30/17 19:30 Nasal Cannula 3.0 Intake and Output 03/30/17 03/30/17 03/31/17 15:00 23:00 07:00 Intake Total 1200 ml 600 ml Output Total 800 ml Balance 1200 ml -200 ml Exam Respiratory: clear to auscultation, normal air movement Cardiovascular: nl pulses, regular rate and rhythm Results Result Diagram: 03/31/17 0515 03/31/17 0758 Results 24 hrs Laboratory Tests Test 03/30/17 12:20 03/31/17 05:15 03/31/17 07:58 White Blood Count 7.7 7.7 Red Blood Count 3.09 L 2.91 L Hemoglobin 10.2 L 9.8 L Hematocrit 31.9 L 30.3 L Mean Corpuscular Volume 103.2 H 104.1 H Mean Corpuscular Hemoglobin 33.0 33.7 H Mean Corpuscular Hemoglobin Concent 32.0 32.3 Red Cell Distribution Width 13.5 13.5 Platelet Count 187 200 Mean Platelet Volume 10.2 10.2 Neutrophils % 80.6 H 58.5 Lymphocytes % 13.6 L 29.0 Monocytes % 4.8 8.1 Eosinophils % 0.3 3.6 Basophils % 0.1 0.3 Nucleated Red Blood Cells % 0.0 0.0 Neutrophils # 6.2 4.5 Lymphocytes # 1.1 2.2 Monocytes # 0.4 0.6 Eosinophils # 0.0 0.3 Basophils # 0.0 0.0 Nucleated Red Blood Cells # 0.0 0.0 Sodium Level 146 H 145 H Potassium Level 5.7 H 4.3 Chloride Level 107 107 Carbon Dioxide Level 29 29 Anion Gap 16 13 Blood Urea Nitrogen 18 17 Creatinine 0.90 0.80 Glucose Level 147 96 # Calcium Level 9.1 8.7 Total Bilirubin 0.1 L Direct Bilirubin 0.00 Indirect Bilirubin 0.1 Aspartate Amino Transf (AST/SGOT) 49 H Alanine Aminotransferase (ALT/SGPT) 25 Alkaline Phosphatase 57 Total Protein 6.9 Albumin 3.8 Globulin 3.10 Albumin/Globulin Ratio 1.22 Medications Medications Current Medications Oxycodone HCl (Roxicodone) 20 mg Q3H PRN PO PAIN LEVEL 8-10; Start 03/27/17 at 12:30 Oxycodone HCl (Roxicodone) 10 mg Q3H PRN PO PAIN LEVEL 4-7 Last administered on 03/30/17 08:31; Admin Dose 10 MG; Start 03/27/17 at 12:30 Oxycodone HCl (Roxicodone) 5 mg Q3H PRN PO PAIN LEVEL 1-3 Last administered on 03/28/17 14:41; Admin Dose 5 MG; Start 03/27/17 at 12:30 Zolpidem Tartrate (Ambien) 5 mg HS PRN PO INSOMNIA; Start 03/27/17 at 12:30 Aspirin (Ecotrin) 325 mg BID PO Last administered on 03/31/17 09:03; Admin Dose 325 MG; Start 03/28/17 at 09:00 Celecoxib (Celebrex) 200 mg BID PO Last administered on 03/31/17 09:03; Admin Dose 200 MG; Start 03/28/17 at 09:00 Pantoprazole (Protonix Tab) 40 mg DAILY@06 PO Last administered on 03/31/17 06 :32; Admin Dose 40 MG; Start 03/28/17 at 06:00 Docusate Sodium/ Ferrous Fumarate (Arsalan-Sequels) 1 tab BID PO Last administered on 03/31/17 09:03; Admin Dose 1 TAB; Start 03/28/17 at 09:00 Simethicone (Mylicon) 80 mg TID PRN PO DISTENSION/GAS/BLOATING; Start 03/27/17 at 12:30 Senna/Docusate Sodium (Senokot-S) 2 tab BID PRN PO CONSTIPATION; Start at 12:30 Magnesium Hydroxide (Milk Of Mag) 30 ml HS PRN PO CONSTIPATION Last administered on 03/30/17 06:49; Admin Dose 30 ML; Start 03/27/17 at 12:30 Bisacodyl (Dulcolax Supp) 10 mg DAILY PRN [place] CONSTIPATION; Start 03/27/17 at 12 :30 Sodium Biphosphate/ Sodium Phosphate (Fleet Enema) 133 ml DAILY PRN [place] CONSTIPATION; Start 03/27/17 at 12:30 Diphenhydramine HCl (Benadryl) 25 mg Q4H PRN IM ITCHING OR RASH; Start at 12:30 Ketorolac Tromethamine (Toradol) 15 mg DAILY@06 PRN INJ ADMINSTER BY SURGEON ONLY; Start 03/28/17 at 06:00; Stop 04/01/17 at 05:59 Bupivacaine HCl/ Epinephrine Bitart (Marcaine 0.25%/ Epi (Sdv) 30 ml) 20 ml DAILY@06 PRN INJ ADMINSTER BY SURGEON ONLY; Start 03/28/17 at 06:00; Stop 04/01 at 05:59 Naloxone HCl (Narcan) 0.2 mg Q2M PRN IV DECREASED REPIRATORY RATE; Start at 12:30 Pyridostigmine [place] (Mestinon) 120 mg Q8 PO Last administered on 03/31/17 06:32; Admin Dose 120 MG; Start 03/27/17 at 14:00 Finasteride (Proscar) 5 mg DAILY PO Last administered on 03/31/17 09:03; Admin Dose 5 MG; Start 03/28/17 at 09:00 Folic Acid (Folic Acid) 1 mg BID PO Last administered on 03/31/17 09:03; Admin Dose 1 MG; Start 03/27/17 at 21:00 Montelukast Sodium (Singulair) 10 mg QHS PO Last administered on 03/30/17 20: 43; Admin Dose 10 MG; Start 03/27/17 at 21:00 Atorvastatin Calcium (Lipitor) 40 mg DAILY@21 PO Last administered on 20:43; Admin Dose 40 MG; Start 03/27/17 at 21:00 Azathioprine (Imuran) 75 mg BID@06,18 PO ; Start 03/31/17 at 06:00 JUAN CARLOS AMAYA MD Mar 31, 2017 09:58
[2017-03-31] MEDS: oxyCODONE 5 MG TAB PO PRN (11:32)
--- NOTE | 2017-04-01 09:27 | DS ---
Date/Time of Note Date/Time of Note DATE: 04/01/17 TIME: 09:22 Discharge Summary Admission/Discharge Info Admit Date/Time Mar 27, 2017 at 06:07 Discharge Date/Time Mar 31, 2017 at 16:30 Discharge Diagnosis Status post right total hip arthroplasty via anterior route Patient Condition: Stable Hospital Course On the day of admission, the patient underwent right total hip arthroplasty via anterior route Intraoperative complications: None Postoperative complications: None The patient was given prophylactic antibiotics and anticoagulants. On the day of surgery and first postoperative day patient was started on gait training and was taught usual restrictions following anterior hip precautions Suction drain removed on the first postoperative day and the dressings were changed. The wound was found to be clean and healing well. There was no sign of infection. Pain cocktail given. On the second postoperative day, patient continued with inpatient PT. Dressings were changed. Wound was found to be clean and healing well. No signs of infection. Pain cocktail given. On the day of discharge, the wound was clean and healing well; there was no sign of infection. The dressings were changed. Discharge Temperature: 97.4 Discharge White Blood Cell Count: 7.7 Discharge Hemoglobin: 9.8 The patient was discharged to acute rehab facility. Tegaderm with pad also provided for patient. Instructions given on how to use to keep wound dry while showering. Patient may discontinue use of Tegaderm with pad after jessica have been removed around 10 days postoperatively. The patient will be seen in office at scheduled postoperative evaluation date given on their preoperative exam. Should patient complain of any problems prior to scheduled postoperative evaluation date, they may call into outpatient clinic to determine if they need to be scheduled at sooner appointment to be seen immediately if needed. Discharge medications: As per medication reconciliation form Diet: Same as preadmission diet. This is Elena Lewis PA-C dictating discharge summary for Dr. Dov Hyde. Home Meds Reported Medications Montelukast Sodium* (Singulair*) 10 Mg Tablet, 10 MG PO QHS, #30 TAB 03/27/17 Lisinopril* (Lisinopril*) 20 Mg Tablet, 20 MG PO DAILY, #30 TAB 03/27/17 Folic Acid* (Folic Acid*) 1 Mg Tablet, 1 MG PO BID, TAB 03/27/17 Fluticasone-Vilanterol (Breo Ellipta Inhaler) 100-25 Mcg/Actuation Aer.pow.ba, 1 PUFF INHALATION DAILY, #1 INHALER 03/27/17 Umeclidinium [place] (Incruse Ellipta) 62.5 Mcg Blst.w.dev, 62.5 MCG IH QAM 03/27/17 Azathioprine* (Imuran*) 50 Mg Tab, 75 MG PO BID, TAB 03/27/17 Escitalopram Oxalate* (Lexapro*) 10 Mg Tablet, 10 MG PO DAILY 11/18/13 Simvastatin* (Zocor*) 5 Mg Tablet, 80 MG PO DAILY 11/18/13 Clopidogrel Bisulfate (Clopidogrel) 75 Mg Tablet, 75 MG PO DAILY 11/18/13 Pyridostigmine [place]* (Mestinon*) 60 Mg Tablet, 120 MG PO TID 11/18/13 Finasteride* (Proscar*) 5 Mg Tablet, 5 MG PO DAILY 11/18/13 Piroxicam* (Piroxicam*) 20 Mg Capsule, 20 MG PO 11/18/13 Discontinued Reported Medications Aspirin/Calcium Carbonate/Mag (Aspir-Mox 325 Mg Tablet) 325 Mg Tablet, 325 MG PO DAILY 11/18/13 Follow-up Plan Follow-up 3 weeks postoperatively for repeat evaluation. Postoperative appointment was given to patient on his preoperative exam. Primary Care Provider Not On Staff Doctor ELENA MARIE PA-C Apr 01, 2017 09:27
== END 2017-03-31 16:30 | DRG 470 ==
LOC: REC 06:07 → ICU 16:40 → MS1 03-29 00:02
PROC: 0SR902A Replacement of Right Hip Joint with Metal on Polyethylene Synthetic Substitute, Uncemented, Open Approach (ICD-10-PCS; principal; 2017-03-27 07:30)
DX: M16.11 Unilateral primary osteoarthritis, right hip (principal); G70.00 Myasthenia gravis without (acute) exacerbation; Z68.41 Body mass index [BMI] 40.0-44.9, adult; E87.1 Hypo-osmolality and hyponatremia; J44.9 Chronic obstructive pulmonary disease, unspecified; I25.10 Atherosclerotic heart disease of native coronary artery without angina pectoris; E78.5 Hyperlipidemia, unspecified; E66.01 Morbid (severe) obesity due to excess calories; I10 Essential (primary) hypertension; G47.30 Sleep apnea, unspecified
CPT/HCPCS: 73500; 73530; 80048; 80053; 85025; 86850; 86900; 86901; 86920; 88304; 88311; 97110; 97116; 97162; 97167; 97530; 97535; C1776; J0131; J0171; J0360; J0690; J0735; J1100; J1644; J1885; J2250; J2274; J2405; J2710; J2795; J3370; J7120; J7121; J7500; J7999

== ENCOUNTER 2017-03-31 13:00 | Inpatient (IN) | payer MEDICARE, BC ==
[~2017-03-31] VITALS: Ht 167.6 cm; Wt 120.0 kg
[~2017-03-31 13:00] MED LIST changes: -ASPI-799 PO; +AZAT50TA31 PO; +FLUT1AER INHALATION; +FOLI-49 PO; +LISI20TA11 PO; +MONT10TA21 PO; -TRANEXAMIC ACID 2,000 MG in SOD CHLORIDE 0.9% 100 ML IVPB ONE; +UMEC62.5 IH
[2017-03-31 18:02] VITALS: Ht 167.6 cm; Wt 120.0 kg
[2017-03-31] MEDS ORDERED: SENNA/DOCUSATE NA (8.6MG/50MG) TAB PO PRN (19:30)
[2017-03-31] MEDS ORDERED: MAGNESIUM HYDROXIDE 30ML CUP PO PRN (19:30)
[2017-03-31] MEDS ORDERED: BISACODYL 10 MG SUPP PR PRN (19:30)
[2017-03-31] MEDS ORDERED: BETHANECHOL 25 MG TAB PO PRN (19:30)
[2017-03-31] MEDS ORDERED: oxyCODONE 5 MG TAB PO PRN ×2 (19:30)
[2017-03-31] MEDS ORDERED: DIPHENHYDRAMINE 50 MG INJ IM PRN (19:30)
[2017-03-31] MEDS ORDERED: NA PHOSPHATE/BIPHOS 133 ML ENEMA PR PRN (19:30)
[2017-03-31] MEDS ORDERED: NALOXONE (0.4 MG/ML) INJ IV PRN (19:30)
[2017-03-31] MEDS ORDERED: ZOLPIDEM 5 MG TAB PO PRN (19:30)
[2017-03-31 20:00] VITALS: BP 140/62; RESP 76
[2017-03-31 20:11] LABS: ADD UMIC NO; UR ASCORBIC ACID NEGATIVE (NEGATIVE); UR BILIRUBIN (Dip) NEGATIVE (NEGATIVE); UR BLOOD (Dip) NEGATIVE (NEGATIVE); UR CLARITY CLEAR (CLEAR); UR COLOR YELLOW (YELLOW); UR GLUCOSE (Dip) NEGATIVE (NEGATIVE); UR KETONES (Dip) NEGATIVE (NEGATIVE); UR LEUKOCYTE ESTERASE (Dip) NEGATIVE Leu/ul (NEGATIVE); UR NITRITE (Dip) NEGATIVE (NEGATIVE); UR SPECIFIC GRAVITY (Dip) 1.019 (1.003-1.030); UR TOTAL PROTEIN (Dip) NEGATIVE (NEGATIVE); UR UROBILINOGEN (Dip) NEGATIVE (NEGATIVE)
[2017-03-31] MEDS: FERROUS FUMARATE (SR) TAB PO SCH (21:27)
[2017-03-31] MEDS: ASPIRIN (EC) 325 MG TAB PO SCH (21:27)
[2017-03-31] MEDS: PYRIDOSTIGMINE 60 MG TAB PO SCH (21:27)
[2017-03-31] MEDS: MONTELUKAST 10 MG TAB PO SCH (21:28)
[2017-03-31] MEDS: AZATHIOPRINE 50 MG TAB PO SCH (21:28)
[2017-03-31] MEDS: ATORVASTATIN 40 MG TAB PO SCH (21:28)
[2017-03-31] MEDS: CELECOXIB 200 MG CAP PO SCH (21:28)
[2017-03-31] MEDS: FOLIC ACID 1 MG TAB PO SCH (21:28)
[2017-04-01] MEDS: PYRIDOSTIGMINE 60 MG TAB PO SCH ×3 (06:06→21:14)
[2017-04-01] MEDS: PANTOPRAZOLE (EC) 40 MG TAB PO SCH (06:06)
[2017-04-01] MEDS: AZATHIOPRINE 50 MG TAB PO SCH ×2 (06:16→17:56)
[2017-04-01 07:23] LABS: ADD SCAN DIFF NO
[2017-04-01 07:30] VITALS: BP 133/63; RESP 18
[2017-04-01 07:31] LABS: BASOPHILS % 0.5 % (0.0-2.0); EOSINOPHILS # 0.3 10^3/ul (0.0-0.5); EOSINOPHILS % 3.7 % (0.0-7.0); HEMATOCRIT 32.2 % (42.0-52.0); HEMOGLOBIN 10.3 g/dl (14.0-18.0); LYMPHOCYTES # 2.1 10^3/ul (0.8-2.9); LYMPHOCYTES % 26.9 % (15.0-51.0); MEAN CORPUSCULAR HEMOGLOBIN 33.4 pg (29.0-33.0); MEAN CORPUSCULAR VOLUME 104.5 fl (82.0-101.0); MEAN PLATELET VOLUME 9.6 fl (7.4-10.4); MONOCYTE # 0.7 10^3/ul (0.3-0.9); MONOCYTES % 8.5 % (0.0-11.0); NEUTROPHIL # 4.6 10^3/ul (1.6-7.5); NEUTROPHILS % 59.7 % (39.0-77.0); PLATELET COUNT 221 10^3/UL (140-415); RED BLOOD COUNT 3.08 10^6/ul (4.70-6.10); RED CELL DISTRIBUTION WIDTH 13.5 % (11.5-14.5); WHITE BLOOD COUNT 7.7 10^3/ul (4.8-10.8)
[2017-04-01 07:50] LABS: ALBUMIN 3.4 g/dl (3.3-4.9); ALBUMIN/GLOBULIN RATIO 1.17; BILIRUBIN,INDIRECT 0.1 mg/dl (0-1.1); BILIRUBIN,TOTAL 0.1 mg/dl (0.2-1.3); CREATININE 0.72 mg/dl (0.61-1.24); POTASSIUM 4.4 mmol/L (3.5-5.1); TOTAL PROTEIN 6.3 g/dl (6.1-8.1)
[2017-04-01] MEDS: FOLIC ACID 1 MG TAB PO SCH ×2 (08:31→21:12)
[2017-04-01] MEDS: CELECOXIB 200 MG CAP PO SCH ×2 (08:31→21:12)
[2017-04-01] MEDS: ASPIRIN (EC) 325 MG TAB PO SCH ×2 (08:31→21:12)
[2017-04-01] MEDS: FERROUS FUMARATE (SR) TAB PO SCH ×2 (08:31→21:12)
[2017-04-01] MEDS: FINASTERIDE 5 MG TAB PO SCH (08:33)
--- NOTE | 2017-04-01 09:53 | CONS ---
Date/Time of Note Date/Time of Note DATE: 04/01/17 TIME: 09:49 Assessment/Plan Assessment/Plan Additional Assessment/Plan REHABILITATION POST-ADMISSION PHYSICIAN EVALUATION REHABILITATION IMPAIRMENT CATEGORY: Other Ortho with patient s/p Right Total Hip Replacement ACTIVE COMORBIDITIES: 1. Myasthenia Gravis 2. Hypertension 3. Asthma 4. Depression 5. Sleep Apnea 6. ASHD with h.o. [place] 7. Hyperlipidemia 8. h.o. R TKR 9. h.o. L THR 10. Impairments in self-care and mobility PLAN: The patient has been admitted for comprehensive interdisciplinary acute rehab and is anticipated to tolerate 3 hours of daily therapy in divided doses for at least 5/7 days a week. The treatment plan will include: 1. Physical therapy to focus on bed mobility, transfers, and household ambulation with the goal of having the patient reach a standby assist level. 2. Occupational therapy to focus on hygiene, grooming, dressing, bathing, and toileting activities with the goal of having the patient reach a standby assist level. 3. Rehabilitation nursing for carryover of therapeutic interventions, the goal of continent of bowel and bladder, pain under adequate control, and patient education with regards to the aforementioned issues ESTIMATED LENGTH OF STAY: 7 days. DISPOSITION GOAL: Home. Rehabilitation Barrier: pain Intervention for barrier: interdisciplinary rehabilitation I acknowledge that I performed a full physical examination on this patient within 24 hours of admission to the rehabilitation unit and believe the patient is a good candidate for comprehensive interdisciplinary rehab care and is anticipated to make reasonable goals in a reasonable period of time as outlined above. Consultation Date/Type/Reason Admit Date/Time Mar 31, 2017 at 13:00 Reason for Consultation Rehabilitation Post Admission Physician Evaluation Hx of Present Illness Patient is a pleasant 77-year-old gentleman with a history of multiple medical comorbidities including myasthenia gravis, obesity, osteoarthritis, who had been noting increasing severe right hip pain despite conservative measures. Patient was admitted to [facility] and underwent right total hip arthroplasty. His postoperative course has been notable for significant pain in addition to impairments in self-care mobility as compared to baseline. Patient has been cleared to transfer to the rehabilitation unit for conference of interdisciplinary rehab care Constitutional: No chills, No diaphoresis, No disoriented, No febrile, No improved, No no complaints, No other, No poor po, No requiring IVF, No requiring O2 Eyes: No discharge, No no complaints, No other, No pain, No redness, No visual change ENT: No bleeding, No congestion, No discharge, No dysphagia, No no complaints, No other, No pain, No sore throat Respiratory: No cough, No no complaints, No other, No pain, No pleuritic pain, No shortness of breath, No sputum, No wheezing Cardiovascular: No chest pain, No edema, No lightheadedness, No no complaints, No orthopenea, No other, No palpitations, No paroxysmal nocturnal dyspnea Gastrointestinal: No blood, No constipation, No decreased appetite, No diarrhea , No flatus, No nausea, No no complaints, No other, No pain, No passing stool, No vomiting Genitourinary: No bleeding, No discharge, No dysuria, No flank pain, No hematuria, No no complaints, No other Skin: No bruising, No erythema, No laceration, No no complaints, No other, No pruritis, No rash, No skin lesions Neurologic: No confusion, No dizziness, No focal-weakness, No headache, No no complaints, No other, No seizure, No syncope Psychological: No anxiety, No confusion, No depression, No nl mood/affect, No no complaints, No other, No suicidal Past Medical History Functional history: Prior to admission patient was independent in self-care tasks and mobility Current functional status: Patient requires moderate assist for self-care mobility tasks I have reviewed the preadmission screen and patient's current functional status is consistent with the preadmission screen Past medical Myasthenia gravis Hypertension Atherosclerotic heart disease status post acute [place] Depression Osteoarthritis As Hyperlipidemia Sleep apnea Past Surgical History Right total knee replacement Left total hip replacement Social History Smoking Status: Never smoker Exam/Review of Systems Vital Signs Vitals Vital Signs Date Time Temp Pulse Resp B/P Pulse Ox O2 Delivery O2 Flow Rate FiO2 03/31/17 20:00 98.6 76 76 140/62 93 Exam HEENT: Extraocular motions intact oropharynx clear, Neck supple Lungs: Clear anteriorly Cardiac: S1-S2 Abdomen: Soft nontender positive bowel Neurologically: He is awake and alert and oriented 3 he will follow simple one- step commands he demonstrates good strength in bilateral upper extremity and the left lower extremity dorsiflexion plantar flexion intact on the right Results Result Diagram: 04/01/17 0630 04/01/17 0612 Results 24 hrs Laboratory Tests Test 03/31/17 17:00 04/01/17 06:12 04/01/17 06:30 Urine Color YELLOW Urine Clarity CLEAR Urine pH 5.0 Urine Specific [place] 1.019 Urine Ketones NEGATIVE Urine Nitrite NEGATIVE Urine Bilirubin NEGATIVE Urine Urobilinogen NEGATIVE Urine Leukocyte Esterase NEGATIVE Urine Hemoglobin NEGATIVE Urine Glucose NEGATIVE Urine Total Protein NEGATIVE Sodium Level 142 Potassium Level 4.4 Chloride Level 106 Carbon Dioxide Level 28 Anion Gap 12 Blood Urea Nitrogen 16 Creatinine 0.72 Glucose Level 100 Calcium Level 9.0 Total Bilirubin 0.1 L Direct Bilirubin 0.00 Indirect Bilirubin 0.1 Aspartate Amino Transf (AST/SGOT) 39 Alanine Aminotransferase (ALT/SGPT) 27 Alkaline Phosphatase 57 Total Protein 6.3 Albumin 3.4 Globulin 2.90 Albumin/Globulin Ratio 1.17 White Blood Count 7.7 Red Blood Count 3.08 L Hemoglobin 10.3 L Hematocrit 32.2 L Mean Corpuscular Volume 104.5 H Mean Corpuscular Hemoglobin 33.4 H Mean Corpuscular Hemoglobin Concent 32.0 Red Cell Distribution Width 13.5 Platelet Count 221 Mean Platelet Volume 9.6 Neutrophils % 59.7 Lymphocytes % 26.9 Monocytes % 8.5 Eosinophils % 3.7 Basophils % 0.5 Nucleated Red Blood Cells % 0.0 Neutrophils # 4.6 Lymphocytes # 2.1 Monocytes # 0.7 Eosinophils # 0.3 Basophils # 0.0 Nucleated Red Blood Cells # 0.0 Medications Medications Current Medications Zolpidem Tartrate (Ambien) 5 mg HS PRN PO INSOMNIA; Start 03/31/17 at 19:30 Sodium Biphosphate/ Sodium Phosphate (Fleet Enema) 133 ml DAILY PRN [place] CONSTIPATION; Start 03/31/17 at 19:30 Simethicone (Mylicon) 80 mg TID PRN PO DISTENSION/GAS/BLOATING; Start 03/31/17 at 19:30 Pyridostigmine [place] (Mestinon) 120 mg Q8 PO Last administered on 04/01/17 06:06; Admin Dose 120 MG; Start 03/31/17 at 22:00 Pantoprazole (Protonix Tab) 40 mg DAILY@06 PO Last administered on 04/01/17 06 :06; Admin Dose 40 MG; Start 04/01/17 at 06:00 Oxycodone HCl (Roxicodone) 5 mg Q3H PRN PO PAIN LEVEL 1-3; Start 03/31/17 at 19 :30 Oxycodone HCl (Roxicodone) 10 mg Q3H PRN PO PAIN LEVEL 4-7 Last administered on 04/01/17 08:30; Admin Dose 10 MG; Start 03/31/17 at 19:30 Oxycodone HCl (Roxicodone) 20 mg Q3H PRN PO PAIN LEVEL 8-10; Start 03/31/17 at 19:30 Naloxone HCl (Narcan) 0.2 mg Q2M PRN IV DECREASED REPIRATORY RATE; Start at 19:30 Montelukast Sodium (Singulair) 10 mg HS PO Last administered on 03/31/17 21:28 ; Admin Dose 10 MG; Start 03/31/17 at 21:00 Magnesium Hydroxide (Milk Of Mag) 30 ml HS PRN PO CONSTIPATION; Start 03/31/17 at 19:30 Folic Acid (Folic Acid) 1 mg BID PO Last administered on 04/01/17 08:31; Admin Dose 1 MG; Start 03/31/17 at 21:00 Finasteride (Proscar) 5 mg DAILY PO Last administered on 04/01/17 08:33; Admin Dose 5 MG; Start 04/01/17 at 09:00 Docusate Sodium/ Ferrous Fumarate (Arsalan-Sequels) 1 tab BID PO Last administered on 04/01/17 08:31; Admin Dose 1 TAB; Start 03/31/17 at 21:00 Senna/Docusate Sodium (Senokot-S) 2 tab BID PRN PO CONSTIPATION; Start at 19:30 Diphenhydramine HCl (Benadryl) 25 mg Q4H PRN IM ITCHING OR RASH; Start at 19:30 Celecoxib (Celebrex) 200 mg BID PO Last administered on 04/01/17 08:31; Admin Dose 200 MG; Start 03/31/17 at 21:00 Bisacodyl (Dulcolax Supp) 10 mg DAILY PRN [place] CONSTIPATION; Start 03/31/17 at 19 :30 Azathioprine (Imuran) 75 mg BID@06,18 PO Last administered on 04/01/17 06:16; Admin Dose 75 MG; Start 03/31/17 at 19:30 Atorvastatin Calcium (Lipitor) 40 mg DAILY@21 PO Last administered on 21:28; Admin Dose 40 MG; Start 03/31/17 at 21:00 Aspirin (Ecotrin) 325 mg BID PO Last administered on 04/01/17 08:31; Admin Dose 325 MG; Start 03/31/17 at 21:00 DIPAK TRAMMELL MD Apr 01, 2017 09:52
[2017-04-01 20:00] VITALS: BP 121/57; RESP 18
[2017-04-01] MEDS: ATORVASTATIN 40 MG TAB PO SCH (21:12)
[2017-04-01] MEDS: MONTELUKAST 10 MG TAB PO SCH (21:13)
[2017-04-02] MEDS: PYRIDOSTIGMINE 60 MG TAB PO SCH ×3 (06:11→20:20)
[2017-04-02] MEDS: PANTOPRAZOLE (EC) 40 MG TAB PO SCH (06:11)
[2017-04-02] MEDS: AZATHIOPRINE 50 MG TAB PO SCH ×2 (06:14→17:49)
[2017-04-02 08:00] VITALS: BP 130/60; RESP 18
[2017-04-02] MEDS: FINASTERIDE 5 MG TAB PO SCH (08:51)
[2017-04-02] MEDS: FERROUS FUMARATE (SR) TAB PO SCH ×2 (08:51→20:19)
[2017-04-02] MEDS: CELECOXIB 200 MG CAP PO SCH ×2 (08:51→20:19)
[2017-04-02] MEDS: FOLIC ACID 1 MG TAB PO SCH ×2 (08:51→20:19)
[2017-04-02] MEDS: oxyCODONE 5 MG TAB PO PRN (08:55)
[2017-04-02] MEDS: ASPIRIN (EC) 325 MG TAB PO SCH ×2 (09:23→20:19)
--- NOTE | 2017-04-02 12:04 | CONS ---
Date/Time of Note Date/Time of Note DATE: 04/02/17 TIME: 12:02 Consult Date/Type/Reason Admit Date/Time Mar 31, 2017 at 13:00 Initial Consult Date Subjective Comfortable motivated Objective Lungs clear anteriorly Standby assist ambulation Vital Signs Date Time Temp Pulse Resp B/P Pulse Ox O2 Delivery O2 Flow Rate FiO2 04/02/17 08:00 98.8 71 18 130/60 96 Intake and Output 04/01/17 04/01/17 04/02/17 15:00 23:00 07:00 Intake Total 460 ml 360 ml Output Total 340 ml 700 ml Balance 120 ml -340 ml Results/Medications Result Diagram: 04/01/17 0630 04/01/17 0612 Medications Current Medications Zolpidem Tartrate (Ambien) 5 mg HS PRN PO INSOMNIA; Start 03/31/17 at 19:30 Sodium Biphosphate/ Sodium Phosphate (Fleet Enema) 133 ml DAILY PRN [place] CONSTIPATION; Start 03/31/17 at 19:30 Simethicone (Mylicon) 80 mg TID PRN PO DISTENSION/GAS/BLOATING; Start 03/31/17 at 19:30 Pyridostigmine [place] (Mestinon) 120 mg Q8 PO Last administered on 04/02/17 06:11; Admin Dose 120 MG; Start 03/31/17 at 22:00 Pantoprazole (Protonix Tab) 40 mg DAILY@06 PO Last administered on 04/02/17 06 :11; Admin Dose 40 MG; Start 04/01/17 at 06:00 Oxycodone HCl (Roxicodone) 5 mg Q3H PRN PO PAIN LEVEL 1-3; Start 03/31/17 at 19 :30 Oxycodone HCl (Roxicodone) 10 mg Q3H PRN PO PAIN LEVEL 4-7 Last administered on 04/01/17 08:30; Admin Dose 10 MG; Start 03/31/17 at 19:30 Oxycodone HCl (Roxicodone) 20 mg Q3H PRN PO PAIN LEVEL 8-10; Start 03/31/17 at 19:30 Naloxone HCl (Narcan) 0.2 mg Q2M PRN IV DECREASED REPIRATORY RATE; Start at 19:30 Montelukast Sodium (Singulair) 10 mg HS PO Last administered on 04/01/17 21:13 ; Admin Dose 10 MG; Start 03/31/17 at 21:00 Magnesium Hydroxide (Milk Of Mag) 30 ml HS PRN PO CONSTIPATION; Start 03/31/17 at 19:30 Folic Acid (Folic Acid) 1 mg BID PO Last administered on 04/02/17 08:51; Admin Dose 1 MG; Start 03/31/17 at 21:00 Finasteride (Proscar) 5 mg DAILY PO Last administered on 04/02/17 08:51; Admin Dose 5 MG; Start 04/01/17 at 09:00 Docusate Sodium/ Ferrous Fumarate (Arsalan-Sequels) 1 tab BID PO Last administered on 04/02/17 08:51; Admin Dose 1 TAB; Start 03/31/17 at 21:00 Senna/Docusate Sodium (Senokot-S) 2 tab BID PRN PO CONSTIPATION; Start at 19:30 Diphenhydramine HCl (Benadryl) 25 mg Q4H PRN IM ITCHING OR RASH; Start at 19:30 Celecoxib (Celebrex) 200 mg BID PO Last administered on 04/02/17 08:51; Admin Dose 200 MG; Start 03/31/17 at 21:00 Bisacodyl (Dulcolax Supp) 10 mg DAILY PRN [place] CONSTIPATION; Start 03/31/17 at 19 :30 Azathioprine (Imuran) 75 mg BID@,18 PO Last administered on 04/02/17 06:14; Admin Dose 75 MG; Start 03/31/17 at 19:30 Atorvastatin Calcium (Lipitor) 40 mg DAILY@21 PO Last administered on 21:12; Admin Dose 40 MG; Start 03/31/17 at 21:00 Aspirin (Ecotrin) 325 mg BID PO Last administered on 04/02/17 09:23; Admin Dose 325 MG; Start 03/31/17 at 21:00 Assessment/Plan Additional Assessment/Plan Rehabilitation - right Total Hip Replacement Excellent functional gains. Working towards discharge home with home health follow-up Myasthenia Gravis Hypertension Asthma Depression Sleep Apnea ASHD with h.o. [place] Hyperlipidemia h.o. R TKR h.o. L THR DIPAK TRAMMELL MD Apr 02, 2017 12:04
[2017-04-02 20:00] VITALS: BP_SYST 127; BP_SYST 144; BP_DIAS 67; BP_DIAS 70; RESP 18; RESP 20
[2017-04-02] MEDS: ATORVASTATIN 40 MG TAB PO SCH (20:19)
[2017-04-02] MEDS: MONTELUKAST 10 MG TAB PO SCH (20:19)
[2017-04-03] MEDS: PANTOPRAZOLE (EC) 40 MG TAB PO SCH (06:34)
[2017-04-03] MEDS: PYRIDOSTIGMINE 60 MG TAB PO SCH (06:34)
[2017-04-03] MEDS: AZATHIOPRINE 50 MG TAB PO SCH (06:34)
[2017-04-03 07:48] VITALS: BP 143/71; RESP 18
[2017-04-03] MEDS: FERROUS FUMARATE (SR) TAB PO SCH (08:38)
[2017-04-03] MEDS: FOLIC ACID 1 MG TAB PO SCH (08:38)
[2017-04-03] MEDS: FINASTERIDE 5 MG TAB PO SCH (08:38)
[2017-04-03] MEDS: CELECOXIB 200 MG CAP PO SCH (08:38)
[2017-04-03] MEDS: ASPIRIN (EC) 325 MG TAB PO SCH (08:38)
[2017-04-03] MEDS: oxyCODONE 5 MG TAB PO PRN (09:05)
== END 2017-04-03 10:00 | disposition home health service (06) | DRG 948 ==
LOC: VRC 13:00
PROVIDERS: ADMIT Physical Medicine & Rehabilitation; ATTEND Internal Medicine
DX: G89.18 Other acute postprocedural pain (principal); G70.00 Myasthenia gravis without (acute) exacerbation; J45.909 Unspecified asthma, uncomplicated; G47.30 Sleep apnea, unspecified; I10 Essential (primary) hypertension; I25.10 Atherosclerotic heart disease of native coronary artery without angina pectoris; F32.9 Major depressive disorder, single episode, unspecified; E78.5 Hyperlipidemia, unspecified; I25.2 Old myocardial infarction; Z96.651 Presence of right artificial knee joint; Z96.642 Presence of left artificial hip joint
CPT/HCPCS: 80053; 81003; 85025; 87081; 87086; 97110; 97116; 97150; 97163; 97167; 97530; 97535

== ENCOUNTER → 2017-04-17 | Outpatient (CLI) | payer MEDICARE, BC ==
--- NOTE | 2017-04-17 14:20 | PN ---
Date/Time of Note Date/Time of Note DATE: 04/17/17 TIME: 14:17 Outpatient Progress Note Chief Complaint 3 weeks status post right total hip replacement HPI 77-year-old male presents today for postoperative appointment 3 weeks status post right total hip replacement via anterior route. Since the surgery/ discharge from the hospital patient states that he has had no pain. After 2 days from returning home after a couple days at acute rehab facility, he states that he had no use of walker and has been walking independently. Denies any pain to the right hip. Patient is very pleased status post surgery. Patient did experience some chest congestion and followed up with his primary care practitioner. Although he is having no chest tightness, calf pain or signs of infection from the hip, his primary care practitioner put him on an antibiotic regimen (he does not recall the name of specific antibiotic) given his history of myasthenia gravis and asthma. Denies any fever, chills or malaise. Denies any discharge or drainage. Fern remain intact to the right hip. Patient continues with at home physical therapy. Presents today with his . Review of Systems Const: No Fever, no chills, no Fatigue, normal appetite, no diaphoresis. Resp: No SOB, no wheezing, no chest pain. CV: No chest pain, no palpitaions, no TAN. Physical Exam Blood pressure is 124/58, temperature is 99.1, pulse is 88, respiratory rate is 12, height is 5 foot 6 inches, weight is 270 pounds General Appearance: well-developed, well-nourished, in no acute distress. Right hip: Surgical wound is clean dry and intact. [place] are intact. No erythema. No signs of infection. No tenderness to palpation to the right hip. Weakness with flexion at the right hip joint. Negative Homans sign. Normal sensory examination to light touch. Gait is normal and nonantalgic. Allergies Coded Allergies: No Known Allergy (Unverified , 03/27/17) Family Hx Patient History: Patient reports no known family medical history. Assessment/Plan -Wound healing well after staple removal. Steri-Strips applied after staple removal. No signs of infection. -Continue ASA 325 mg twice daily for DVT prophylaxis until 6 weeks status post surgery. -Continue hip precautions until 6 weeks status post surgery -No signs of DVT. -Patient progressing well. -Follow-up at 6 week postop appointment. X-rays will be performed at 6 weeks postoperative appointment. -Patient made aware that they may follow-up sooner, should they experience any issues or complications as we will be glad to see them. -Order for outpatient physical therapy given today with focus on improved range of motion and mobility to the hip. Medications Home Meds Reported Medications Montelukast Sodium* (Singulair*) 10 Mg Tablet, 10 MG PO QHS, #30 TAB 03/27/17 Lisinopril* (Lisinopril*) 20 Mg Tablet, 20 MG PO DAILY, #30 TAB 03/27/17 Folic Acid* (Folic Acid*) 1 Mg Tablet, 1 MG PO BID, TAB 03/27/17 Fluticasone-Vilanterol (Breo Ellipta Inhaler) 100-25 Mcg/Actuation Aer.pow.ba, 1 PUFF INHALATION DAILY, #1 INHALER 03/27/17 Umeclidinium [place] (Incruse Ellipta) 62.5 Mcg Blst.w.dev, 62.5 MCG IH QAM 03/27/17 Azathioprine* (Imuran*) 50 Mg Tab, 75 MG PO BID, TAB 03/27/17 Escitalopram Oxalate* (Lexapro*) 10 Mg Tablet, 10 MG PO DAILY 11/18/13 Simvastatin* (Zocor*) 5 Mg Tablet, 80 MG PO DAILY 11/18/13 Clopidogrel Bisulfate (Clopidogrel) 75 Mg Tablet, 75 MG PO DAILY 11/18/13 Pyridostigmine [place]* (Mestinon*) 60 Mg Tablet, 120 MG PO TID 11/18/13 Finasteride* (Proscar*) 5 Mg Tablet, 5 MG PO DAILY 11/18/13 Piroxicam* (Piroxicam*) 20 Mg Capsule, 20 MG PO 11/18/13 ELENA MARIE PA-C Apr 17, 2017 14:20
== END | disposition home or self-care (01) ==
LOC: HKI 13:38
DX: Z47.1 Aftercare following joint replacement surgery (principal); Z96.641 Presence of right artificial hip joint

== ENCOUNTER → 2017-05-14 | Outpatient (CLI) | payer MEDICARE, BC ==
--- NOTE | 2017-05-14 14:32 | PN ---
Date/Time of Note Date/Time of Note DATE: 05/14/17 TIME: 14:27 Outpatient Progress Note Chief Complaint 6 week postop status post right total hip replacement HPI 77-year-old male presents today for 6 week postoperative appointment status post right total hip arthroplasty via anterior route performed on 03/27/2017. Patient continues to progress with no pain complaints. Patient is very satisfied status post surgery. Denies any falls or injury. Denies any calf pain. Denies any chest pain/tightness, shortness of breath. Only complaint is when patient has discomfort around the belt line when he is wearing a belt as he feels that it presses on the superior pole of the wound.Walking independently. Review of Systems Const: No Fever, no chills, no Fatigue, normal appetite, no diaphoresis. Resp: No SOB, no wheezing, no chest pain. CV: No chest pain, no palpitaions, no TAN. Physical Exam General Appearance: well-developed, well-nourished, in no acute distress. Right hip: Well-healed surgical scarring to the right hip. Wound is clean dry and intact. No signs of infection. No tenderness to palpation. While standing , patient is able to flex the hip up to 90. About 4+/[address] weakness standing. Patient is able to lie supine and is able to perform straight leg raise anywhere between 30-45 with weakness. No pain with internal /external rotation. Normal abduction with limited adduction. Normal sensory examination to light touch. Negative Homans sign. Imaging: X-ray of the Right hip performed on 05/14/2017 showing all components appearing well aligned, attached and integrated to the bone. No signs of any lucency between metal and bone. Allergies Coded Allergies: No Known Allergy (Unverified , 03/27/17) Family Hx Patient History: Patient reports no known family medical history. Assessment/Plan -Patient progressing well -Surgical wound continues to heal well. -No signs of infection or DVT on exam. -X-rays showing no abnormalities in regards to prosthesis attachment to bone. -Antibiotic prophylaxis card provided today. -Patient may discontinue hip precautions at this time. -Follow-up 6 months status post surgery. If patient is doing well at that time , possible follow-up on as-needed basis from that point. Dental prophylaxis discussed in detail today. Patient given prophylaxis card with antibiotic options. Should patient have allergy to specific medication ( eg penicillin) alternative options are also provided on the card. Patient is aware that antibiotics should be taken prior to any procedures to prevent increased risk of infection to the joint. Patient is aware that this will be for the rest of their life. Patient states understanding and compliance. Medications Home Meds Reported Medications Montelukast Sodium* (Singulair*) 10 Mg Tablet, 10 MG PO QHS, #30 TAB 03/27/17 Lisinopril* (Lisinopril*) 20 Mg Tablet, 20 MG PO DAILY, #30 TAB 03/27/17 Folic Acid* (Folic Acid*) 1 Mg Tablet, 1 MG PO BID, TAB 03/27/17 Fluticasone-Vilanterol (Breo Ellipta Inhaler) 100-25 Mcg/Actuation Aer.pow.ba, 1 PUFF INHALATION DAILY, #1 INHALER 03/27/17 Umeclidinium [place] (Incruse Ellipta) 62.5 Mcg Blst.w.dev, 62.5 MCG IH QAM 03/27/17 Azathioprine* (Imuran*) 50 Mg Tab, 75 MG PO BID, TAB 03/27/17 Escitalopram Oxalate* (Lexapro*) 10 Mg Tablet, 10 MG PO DAILY 11/18/13 Simvastatin* (Zocor*) 5 Mg Tablet, 80 MG PO DAILY 11/18/13 Clopidogrel Bisulfate (Clopidogrel) 75 Mg Tablet, 75 MG PO DAILY 11/18/13 Pyridostigmine [place]* (Mestinon*) 60 Mg Tablet, 120 MG PO TID 11/18/13 Finasteride* (Proscar*) 5 Mg Tablet, 5 MG PO DAILY 11/18/13 Piroxicam* (Piroxicam*) 20 Mg Capsule, 20 MG PO 11/18/13 ELENA MARIE PA-C May 14, 2017 14:32
--- NOTE | 2017-05-14 17:42 | RADRPT ---
PROCEDURE: XR Right hip and pelvis. CLINICAL INDICATION: Right hip pain. Pelvic pain. Postop. TECHNIQUE: Two views. Frontal pelvis and lateral right hip. COMPARISON: 03/27/2017. FINDINGS: There are bilateral total hip arthroplasties. These appears satisfactory with no fracture, dislocat ion, or loosening. The soft tissues are normal. The upper pelvis is not included on the images. There is no lytic or blastic lesion. IMPRESSION: 1. Satisfactory postoperative appearance of both hips. 2. Otherwise unremarkable study. RPTAT: QQ .Teddy Richardson MD, MD Date Time Electronically viewed and signed by .Teddy Richardson MD, MD on 05/14/2017 17:42 .R/
== END | disposition home or self-care (01) ==
LOC: HKI 13:31
DX: Z47.1 Aftercare following joint replacement surgery (principal); Z96.641 Presence of right artificial hip joint
CPT/HCPCS: 73502